=== PATIENT | female | born 1965 | race Asian ===

== ENCOUNTER 2024-12-20 08:45 | Outpatient (REF) | payer MEDICAID, SELFPAY ==
--- NOTE | ~2024-12-20 | XR_ITS ---
EXAMINATION: XR SHOULDER, LEFT CLINICAL INFORMATION: M25.519 - Pain in unspecified shoulder COMPARISON: None available. TECHNIQUE: Three views of the left shoulder. FINDINGS: The AC joint is intact. There is no degenerative change. Angle formed between the plane of glenoid and subacromial cortex is narrowed measuring 57 degrees. On humeral joint is not dislocated. Osteophyte is visible in the medial margin of the humeral head. No fracture is evident. XR/XR shoulder LT min 2V IMPRESSION: Minimal degenerative change in the left shoulder joint. Laterally downsloping acromion. Electronically signed by: Kelvin Burch MD 12/20/2024 10:48 AM EDT
== END 2024-12-20 08:46 | disposition home or self-care (01) ==
LOC: HO.HOSX 08:45
PROVIDERS: Visit Provider Physician Assistant
DX: M54.12 Radiculopathy, cervical region (principal); M75.102 Unspecified rotator cuff tear or rupture of left shoulder, not specified as traumatic; M25.512 Pain in left shoulder
CPT/HCPCS: 20610; 73030; 99202; J0665; J1100; J2003

== ENCOUNTER 2024-12-20 10:28 | Outpatient (AMB) | payer MEDICAID, SELFPAY ==
--- OUTSIDE RECORDS SUMMARY | 2024-12-19 10:00 | XMS_ITS | Encounter Summary ---
Author Organization [facility] Address [address] [place] [address] Care Team Providers Care Reverse Logistics Analyst Name Role Phone Aixa Goel GERBER Primary Care Provider [phone] Reason for Visit * Reason Comments Individual Counseling Encounter Details Date Type Department Care Team (Late st Contact Info) Description 12/19/2024 10:00 AM EDT / Visits [facility] [address] [place] [id number] Katelin Mcclain LICSW [address] [place] [address] Social History Tobacco Use Types Packs/Day Years Used Date Smoking Tobacco: Never Passive Smoke Exposure: Never Smokeless Tobacco: Never Alcohol Use Standard Drinks/Week Comments No 0 (1 standard drink = 0.6 oz pur e alcohol) Social Connections Answer Date Recorded Connectedness 0 08/13/2022 Financial Resource Strain Answer Date R ecorded Financial Resource Strain 0 2022 Stress Answer Date Recorded Stress 0 08/13/2022 Physical Activity Answer Date Recorded Physical Activity 0 10/16/2018 Food Insecurity Answer Date Recorded Food 0 08/13/2022 Transportation Needs Answer Date Record ed Transportation 0 08/13/2022 Housing Stability Answer Date Recorded Housing 0 08/13/2022 Safety and Environment Answer Date Dmitry rded Safety 0 08/13/2022 Utilities Answer Date Recorded Utilities 0 08/13/2022 Employment Answer Date Recorded Stress 0 07/04/2021 Comments No Sex and Gender Information Value Date Recorded Sex Assigned at Female 12/24/2016 12:05 PM PDT Legal Sex Female 11:45 AM PST Gender Identity Female 12/24/2016 12:05 PM PDT Sexual Orientation Straight 12/24/2016 12 :05 PM PDT Occupation Industry Job Start Date Job End Date unemployed Not on file Not on file Not on file documented as of this encounter Progress Notes * Katelin Mcclain, [facility] - 12/19/2024 10:55 AM EDT TOTAL TIME IN SESSION: 30 minutes START/ END TIME: 10:07-10:35 RISK ASSESSMENT: PERSON DENIES SI/HI OTHER PEOPLE PRESENT IN SESSION: OTHER Her son to provide Bulgarian interpretation. Assessed Needs/Goals/Objectives/Services Status Priority Assessed Needs 1: Mental Health Active 1 - High Status Target Date Goal 1.1: Improve mood and lower her sx from all of the time to 5/6 times a week mild Active 11/14/2023 Status Target Date Objective 1.1.1: Client will learn and practice skills to lower and manage her skills to lower her sx Assessed Needs 2: BH, Phys Hlth & Wellness Active 1 - High Status Target Date Goal 2.1: Continue to work with pt on managing her mood and improving her health Active 11/22/2025 Status Target Date Objective 2.1.1: Client will continue to learn and pracrice her coping skills to manageand improve her mood . Active 11/22/2025 Services Duration Amount Frequency Provider Provider Individual Therapy 30 - Mins 1x Monthly [facility] Service Plan Mental Health Improve mood and lower her sx from all of the time to 5/6 times a week mild Client will learn and practice skills to lower and manage her skills to lower her sx BH, Phys Hlth & Wellness Continue to work with pt on managing her mood and improving her health Client will continue to learn and pracrice her coping skills to manageand improve her mood . PROGRESS SINCE LAST SESSION TOWARD GOALS/OBJECTIVES: Client expressed her difficulty in managing her health issues; her suger levels go down that she feels like throwing up at times, she is always hungry and sticking to a health diet leaves her hungry all the time. She also had a observer helper shoulder pain. NEW CONCERNS TODAY: NEED TO COMPLETE COMPREHENSIVE ASSESSMENT AND IAP UPDATES Pain. MOOD: DYSPHORIC AFFECT: FULL RANGE AND CONGRUENT WITH MOOD SPEECH: WNL BEHAVIOR: COOPERATIVE EYE CONTACT: WNL THOUGHT PROCESSES: WNL ORIENTATION: WNL MEDICAL CONCERNS: NOTHING NEW COMMENT: SUBSTANCE USE: NO HX INTERVENTIONS: Allowed time for client to tell his/her story and express emotions attached to story. Utilized solution focused strategy to encouraged client to keep cooperating with her pcp to manageher medical issues. PERSON'S RESPONSE TO INTERVENTIONS: FULLY ENGAGED and COOPERATIVE Client will be seeing her orthopedic docto doctor tomorrow for her shoulder pain. PLAN FOR NEXT SESSION: Support client with managing her sx. DATE OF NEXT SESSION: 01/30 CLIENT WILL: USE SKILLS TAUGHT IN SESSION and CONSIDER HOW DISCUSSION RELATES TO HIS/HER LIFE documented in this encounter Plan of Treatment Upcoming Encounters Date Type Department Care Team (Late st Contact Info) Description 01/13/2025 9:20 AM EST Office Visit [address] [phone] Aixa Goel FNP [address] [place] [id number] 01/30/2025 10:00 AM EST BH/MH Visits [facility] [address] [place] [phone] Katelin Mcclain LICSW [address] [place] [id number] 03/28/2025 10:20 AM EST Office Visit [facility] [address] [place] [phone] Tiana Son [address] [place] [phone] documented as of this encounter Visit Diagnoses Diagnosis Depression- Primary Depressive disorder, not elsewhere classified Moderate episode of recurrent major depressive disorder documented in this encounter Additional Health Concerns Assessment Noted Time PHQ-9 Depression Total Score: 0 07/26/19 25 10:00 AM PDT A Depression follow-up plan has been documented for the patient 03/05/2023 9:52 AM PST documented as of this encounter Care Teams Reverse Logistics Analyst Relationship Specialty Start Date End Date Aixa Goel FNP [address] [place] [phone] PCP - General Internal Medicine 03/20/21 documented as of this encounter
--- NOTE | 2024-12-20 10:39 | A.OFFVIS_ITS ---
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 Patient's son reports this has been ongoing pain since the end of summer 2024. Her pain is worse when the weather is cold and with lifting her arm above head. No history of injury to shoulder. Son reports she has never been treated for her shoulders in the past. Tylenol and ibuprofen no longer provides her with relief. Expresses numbness and tingling that radiates throughout her LUE. Hx of Type 2 DM. 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 Malik is a 59-year-old right-hand dominant female who presents to the office today for evaluation of left shoulder pain. She reports that the pain has been present for the past 4-5 months. She had trauma. Pain is worse with lifting above shoulder height. She has not had any treatment to date for the shoulder. She has tried taking Tylenol and ibuprofen with no relief. Additionally, she expresses pain that runs from the neck down the entire left upper extremity accompanied by numbness and tingling. [facility] Social History (Updated 12/20/24 @ 10:51 by BLANCA Manjarrez) Alcohol intake: never Patient Tobacco Use Status: Never used Tobacco Current occupation: retired - right handed Review of Systems Const All systems reviewed & are unremarkable except as noted in HPI and below Physical Exam Vital Signs: BMI result Body Mass Index 30.1 Const General: cooperative, healthy appearing and no acute distress Resp Effort & Inspection: normal respiratory effort and able to speak in complete sentences Extrem Other: Left upper extremity 90 degrees of forward flexion and abduction. Pain with cross-body reach. Unable to attempt empty can and drop arm due to patient pain and guarding. NVI. Psych Appearance: grossly normal Mental Status: mental status grossly normal Attitude: cooperative Office Procedures AMB Joint Injection/Aspiration Joint Injection/Aspiration Primary Site: left shoulder Prep: site was prepped using aseptic technique, ethochloride spray was applied and injection warnings given Injected: 40 mg of, with 3 mL of, 1% plain lidocaine, 0.25% bupivacaine, in the subcromial space and decadron Approach Used: posterolateral Procedure: The patient tolerated the procedure well, but had some pain with the injection and there was some relief with the local anesthesia Coding - Large joint Procedure code (CPT) selection complete Assessment & Plan Assessment & Plan (1) Painful arc syndrome of left shoulder: Code(s): M75.102 - Unspecified rotator cuff tear or rupture of left shoulder, not specified as traumatic Category: Medical (2) Cervical radiculopathy: Code(s): M54.12 - Radiculopathy, cervical region Category: Medical Plan Ms. Malik is a 59-year-old right-hand dominant female who presents to the office today for evaluation of left shoulder pain. She reports that the pain has been present for the past 4-5 months. She had trauma. Pain is worse with lifting above shoulder height. She has not had any treatment to date for the shoulder. She has tried taking Tylenol and ibuprofen with no relief. Additionally, she expresses pain that runs from the neck down the entire left upper extremity accompanied by numbness and tingling. The patient was offered a cortisone injection in the left shoulder. The patient was explained the risks, benefits, and alternatives to receiving this injection. After receiving consent for the injection, the patient had the procedure done while in the office today. The patient tolerated the procedure well with no co mplications. I instructed the patient that should she have continued pain over the next 2-4 weeks she should contact the office and we will schedule an appointment for evaluation of her C-spine contributing to her symptoms. Patient understands and accepts. Follow-up will be PRN, or sooner if needed X-rays of the left shoulder which were obtained while in the office today and were reviewed by me, Lynn Putnam PA-C, revealed mild arthritic changes. Orders: Orders XR shoulder LT min 2V Today M25.519 - Pain in unspecified shoulder Coding Level of Care Code New Pt Level 3 (50697) Diagnoses Painful arc syndrome of left shoulder M75.102 Cervical radiculopathy M54.12 CPT Codes Coding - Large joint: 63949 - Large joint ([id number])
[2024-12-20 10:46] VITALS: BMI 30.1
--- OUTSIDE RECORDS SUMMARY | 2024-12-20 12:59 | XMS_ITS | Clinical Summary ---
Author Organization [facility] Address [address] [facility] [address] [place] [address] Care Team Providers Care Orthopedic Brace Maker Name Role Phone Unavailable Primary Care Provider Unavailabl e Social History Tobacco Use Types Packs/Day Years Used Date Smoking Tobacco: Never Assessed Comments Unknown Sex and Gender Information Value Date Recorded Sex Assigned at Not on file Legal Sex Female 9:21 PM EDT Gender Identity Not on file Sexual Orientation Not on file Plan of Treatment Health Maintenance Due Date Last Done Comments CT Colonography 1963 Colonoscopy 1963 Colorectal Cancer Screening 1963 Depression Screening 1963 FIT DNA/Cologuard 1963 FIT 1963 FOBT 1963 Lipid Panel 1963 SDOH Screening 1963 Sigmoidoscopy 1963 Disability Screening 1963 Alcohol/Substance Use Screening 1975 Tobacco Screening 1975 Hepatitis C Screening 1981 Hepatitis A Vaccines (1 of 2 - Risk 2-dose series) 1982 Pap Smear 01/09/1984 Cervical Cancer Screening 1993 HPV/Cotest 1993 Mammogram 2003 Hepatitis B Vaccines (1 of 3 - Risk 3-dose series) 2023 RSV Patients and Patients Aged 60 years or older (1 - Risk 60-74 years 1-dose series) 2023 Pneumococcal Vaccine: 50+ Years (3 of 3 - PCV20 or PCV21) 11/26/2023 11/25/2018, 03/23/2015 COVID-19 Vaccine ( - season) 2024 11/01/2021, 02/28/2021, 08/28/2020, Additional history exists Influenza Vaccine (#1) 2024 , 11/05/2022, 04/04/2022, Additional history exists DTaP/Tdap/Td Vaccines (2 - Td or Tdap) 03/23/2025 03/23/2015 HIV Screening Completed 05/03/2020 Zoster Vaccines Completed 10/30/2020, 05/03/2020 HIB Vaccines Aged Out No longer eligi ble based on patient's age to complete this topic HPV Vaccines Aged Out No longer eligi ble based on patient's age to complete this topic IPV Vaccines Aged Out No longer eligi ble based on patient's age to complete this topic Meningococcal B Vaccine Aged Out No l onger eligible based on patient's age to complete this topic Meningococcal Vaccine Aged Out No samaria viral eligible based on patient's age to complete this topic RSV under 20 months Aged Out No longe r eligible based on patient's age to complete this topic Rotavirus Vaccines Aged Out No longer eligible based on patient's age to complete this topic
--- OUTSIDE RECORDS SUMMARY | 2024-12-20 13:00 | XMS_ITS | Clinical Summary ---
Author Organization [facility] Address [address] [place] [address] Care Team Providers Care Professional Advisor Name Role Phone SukhwinderAixa meraz GERBER Primary Care Provider [phone] Source Comments PLEASE NOTE, if this patient is a minor, it may be UNLAWFUL to discuss sensitive information that is contained in these records (such as FAMILY PLANNING, MENTAL HEALTH or SUBSTANCE ABUSE) with the minor patient's parent or other person without the patient's specific authorization.[facility] Allergies Active Allergy Reactions Criticality Noted Date Comments Amoxicillin Rash Low 07/26/2013 Skin itching, rash on medication that resolved after stopping medication . Clotrimazole Rash,Itching Medium 05/02/2014 Doxycycline Rash 01/14/2017 Dulaglutide GI intolerance 12/04/2023 Nausea and vomiting Dust Mites Runny Nose 05/22/2015 Empagliflozin Other (See Comments) 11/20/2020 C/o: dizziness Grass Pollen Runny Nose Low 05/22/2015 Insects 05/22/2015 Cockroach. Lisinopril Rash,Cough 06/03/2018 Metformin Other (See Comments) 11/20/2020 C/o: diarrhea, nausea Sulfa (Sulfonamide Antibiotics) Rash Low 09/06/2014 Medications FREESTYLE LITE METER monitoring kit 0 018 Active miscellaneous medical supply miscIndications:U rinary incontinence, unspecified type One (1) bedside commode for urinary mixed urinary incontinence. Dx: R32 LOS: 99 1 Each 021 Active miscellaneous medical supply miscIndications:U rinary incontinence, unspecified type,Low back pain radiating to left lower extremity,Chronic pain of left knee,Primary osteoarthritis, unspecified site,Risk for falls One raised toilet seat with handles to assist with safety. Dx: R32, M54.5, M25.562, M19.91, Z91.81 LOS: 99 1 Each 021 Active ipratropium bromide (ATROVENT) 21 mcg (0.03 %) nasal spray Place 2 Sprays into the nostril(s) 2 (two) times daily Given by flat sorter processor 30 mL 1 022 Active busPIRone (BUSPAR) 15 mg tablet Take 1 Tablet by mouth 3 (three) times daily 90 Tablet 5 023 Active DULoxetine (CYMBALTA) [address] capsuleIndication s:Type 2 diabetes mellitus with hyperglycemia, without long-term current use of insulin Take 1 Capsule by mouth once daily for 90 days 90 Capsule 023 Active fluticasone (FLONASE) 50 mcg/actuation nasal sprayIndications: Nasal congestion Place 2 Sprays in both nostrils once daily for 15 days 16 g 1 023 Active OXcarbazepine (TRILEPTAL) 150 mg tablet Take 3 Tablets by mouth nightly at bedtime 270 Tablet 024 Active diclofenac sodium (VOLTAREN) 1 % gelIndications:Ch ronic foot pain, left APPLY 1 TO 2 GRAMS TOPICALLY TO THE AFFECTED AREA TWICE DAILY. NOT TO EXCEED 16 GM A DAY 100 g 2 024 Active blood-glucose meter,continuous (FREESTYLE JOSE MIGUEL 3 READER) miscIndications:T ype 2 diabetes mellitus with hyperglycemia, with long-term current use of insulin Use to test blood glucose continuously. (Freestyle Jose Miguel 3 reader) 1 Each 024 Active meclizine (ANTIVERT) 25 mg tabletIndications :Dizziness Take 1 Tablet by mouth every 8 (eight) hours as needed for dizziness 30 Tablet 1 024 Active ammonium lactate (AMLACTIN) 12 % creamIndications: Routine general medical examination at a health care facility MANUEL TO affected area as needed three times per day 140 g 5 024 Active riboflavin, vitamin B2, 400 mg tab Take 1 Tablet by mouth once daily 024 Active MISCELLANEOUS MEDICAL SUPPLY MISCIndications:M ixed stress and urge urinary incontinence Order pull up brief, used X4 per day. Size medium. Need lifetime. 120 Each Active gabapentin (NEURONTIN) 300 mg capsuleIndication s:Type 2 diabetes mellitus with diabetic polyneuropathy, with long-term current use of insulin Take 2 Capsules by mouth every evening FOR LEG OR NUMBNESS 180 Capsule 1 025 Active tacrolimus (PROTOPIC) 0.1 % ointment APPLY TO THE AFFECTED AREA 1 TO 2 TIMES DAILY NEEDED IF SKIN IS FLARED Active FEROSUL 325 mg (65 mg iron) tablet TAKE 1 TABLET BY MOUTH TWICE DAILY 180 Tablet Active insulin tape machine tailer cart,BT,G6/L2-cnt r (OMNIPOD 5 INTRO,G6/XLOHB0MO US,) crtgIndications:T ype 2 diabetes mellitus with stage 3a chronic kidney disease, with long-term current use of insulin,Type 2 diabetes mellitus with diabetic polyneuropathy, with long-term current use of insulin Inject 1 Kit into the skin once daily Use to continuously administer insulin as directed. (OmniPod 5 G6/LIBRE2 Plus intro kit) 1 Each 025 Active docusate sodium (COLACE) 100 mg capsule Take 1 Capsule by mouth 3 (three) times daily as needed for constipation 90 Capsule 2 025 Active budesonide (RHINOCORT-AQ) 32 mcg/actuation nasal spray SHAKE LIQUID AND USE 2 SPRAYS IN EACH NOSTRIL EVERY DAY 8.43 mL 3 025 Active blood-glucose sensor (FREESTYLE JOSE MIGUEL 2 PLUS SENSOR) deviIndications:T ype 2 diabetes mellitus with stage 3a chronic kidney disease, with long-term current use of insulin,Type 2 diabetes mellitus with diabetic polyneuropathy, with long-term current use of insulin Place 1 sensor to back of upper arm every 15 days. Use to monitor blood sugar continuously (Freestyle Jose Miguel 2 Plus) 2 Each 025 Active insulin lispro (HUMALOG) 100 unit/mL injectionIndicati ons:Type 2 diabetes mellitus with stage 3a chronic kidney disease, with long-term current use of insulin,Type 2 diabetes mellitus with diabetic polyneuropathy, with long-term current use of insulin Use in Omnipod insulin pump up to 90 units daily 30 mL 11 025 Active DUPIXENT PEN 300 mg/2 mL pnij INJECT 600 MG SUBCUTANEOUSLY X1 LOADING DOSE, THEN INJECT 300MG EVERY 2 WEEKS 025 Active risperiDONE (RISPERDAL) 1 mg tablet Take 1 Tablet by mouth nightly at bedtime 90 Tablet 1 025 Active insulin glargine (LANTUS SOLOSTAR U-100 INSULIN) 100 unit/mL (3 mL) penIndications:Ty pe 2 diabetes mellitus with stage 3a chronic kidney disease, with long-term current use of insulin,Type 2 diabetes mellitus with diabetic polyneuropathy, with long-term current use of insulin Inject 30 Units into the skin every morning keep on hold until pt requests, to be used if Omnipod is non-functional . 15 mL 025 Active insulin lispro 100 unit/mL injection penIndications:Ty pe 2 diabetes mellitus with stage 3a chronic kidney disease, with long-term current use of insulin,Type 2 diabetes mellitus with diabetic polyneuropathy, with long-term current use of insulin Inject 12 Units into the skin 3 (three) times daily before meals (Max 36 units/day) keep on hold until pt requests, to be used if Omnipod is non-functional . 15 mL 025 Active lidocaine (LIDODERM) 5 % patchIndications: Acute right-sided thoracic back pain Place 1 Patch onto the skin once daily (every 24 hours) Rt side skin lump pain.. 30 Patch 3 025 Active atorvastatin (LIPITOR) 20 mg tabletIndications :Type 2 diabetes mellitus with stage 3a chronic kidney disease, with long-term current use of insulin,Type 2 diabetes mellitus with diabetic polyneuropathy, with long-term current use of insulin,Hyperlipi demia LDL goal <100 Take 1 Tablet by mouth every evening For cholesterol. 90 Tablet 1 025 Active cholecalciferol (VITAMIN D-3) 50 mcg (2,000 unit) tabletIndications :Type 2 diabetes mellitus with diabetic polyneuropathy, with long-term current use of insulin Take 1 Tablet by mouth once daily. 90 Tablet 3 025 Active levothyroxine 100 mcg tabletIndications :Acquired hypothyroidism Take 1 Tablet by mouth once daily. 60 Tablet 1 025 Active olmesartan (BENICAR) 5 mg tabletIndications :Essential hypertension Take 1 Tablet by mouth every morning For blood pressure.. 90 Tablet 025 Active magnesium oxide (MAG-OX) 400 mg (241.3 mg magnesium) tablet Take 1 Tablet by mouth once daily. 90 Tablet 1 025 Active hydrocortisone 2.5 % ointmentIndicatio ns:Routine general medical examination at a health care facility Apply topically 2 (two) times daily. 28.35 g 2 025 Active pen needle, diabetic (BD ULTRA-FINE RUTH PEN NEEDLE) 32 gauge x 32 ndleIndications:T ype 2 diabetes mellitus with stage 3a chronic kidney disease, with long-term current use of insulin,Type 2 diabetes mellitus with diabetic polyneuropathy, with long-term current use of insulin USE TO INJECT INSULIN UNDER THE SKIN EVERY DAY 200 Each 025 Active alcohol swabsIndications: Type 2 diabetes mellitus with hyperglycemia, with long-term current use of insulin Use to test blood glucose up to 3 times daily.. 100 Each 025 Active blood sugar diagnostic stripsIndications :Type 2 diabetes mellitus with hyperglycemia, with long-term current use of insulin Use to test blood glucose up to 3 times daily (Freestyle Precision Marcos). 100 Each 025 Active lancets (FREESTYLE LANCETS) 28 gaugeIndications: Type 2 diabetes mellitus with hyperglycemia, with long-term current use of insulin Use to test blood glucose up to 3 times daily (Freestyle Lancets). 100 Each 025 Active MYRBETRIQ 50 mg [id number]:H TN (hypertension), benign,Mixed stress and urge urinary incontinence TAKE 1 TABLET BY MOUTH DAILY 90 Tablet 025 Active traMADoL (ULTRAM) 50 mg tabletIndications :Migraine with aura and without status migrainosus, not intractable Take 1 Tablet by mouth 2 (two) times daily as needed for pain. Max Daily Amount: 100 mg 30 Tablet 1 025 Active loperamide 2 mg tabletIndications :Diarrhea, unspecified type Take 1 Tablet by mouth every 8 (eight) hours as needed for diarrhea. 20 Tablet 1 025 Active triamcinolone (KENALOG) 0.1 % pasteIndications: Routine general medical examination at a health care facility Place in mouth 2 (two) times daily. 5 g 5 025 Active SUMAtriptan succinate (IMITREX) 100 mg tabletIndications :Chronic migraine without aura with status migrainosus, not intractable Take 1 Tablet by mouth once daily NEEDED FOR HEADACHES. IF NOT BETTER IN 2 HOURS THEN YOU MAY 1 MORE TABLETS! MAX 2 TABLETS PER DAY!!. 20 Tablet 1 025 Active omeprazole (PRILOSEC) [address] capsuleIndication s:Routine general medical examination at a health care facility Take 1 Capsule by mouth every morning before breakfast. 90 Capsule 1 025 Active montelukast (SINGULAIR) 10 mg tabletIndications :Routine general medical examination at a health care facility TAKE 1 TABLET BY MOUTH EVERY NIGHT AT BEDTIME. 90 Tablet 1 025 Active ketotifen (ZADITOR) 0.025 % (0.035 %) ophthalmic solutionIndicatio ns:Routine general medical examination at a health care facility INSTILL 1 DROP IN BOTH EYES TWICE DAILY. 10 mL 2 025 Active hydrocortisone valerate (WEST-ROSALINA) 0.2 % ointmentIndicatio ns:Routine general medical examination at a health care facility Apply topically 2 (two) times daily as needed for rash APPLY TOPICALLY TO FACE TWICE DAILY NEEDED To legs and arms. 15 g 3 025 Active acetaminophen (TYLENOL) 500 mg tabletIndications :Chronic migraine without aura with status migrainosus, not intractable Take 2 Tablets by mouth every 6 (six) hours as needed for pain. 60 Tablet 2 025 Active benzonatate (TESSALON) 200 mg capsule TAKE 1 CAPSULE BY MOUTH THREE TIMES DAILY FOR 5 DAYS FOR COUGH 025 Active dapagliflozin propanediol (FARXIGA) 10 mg tabIndications:Ty pe 2 diabetes mellitus with stage 3a chronic kidney disease, with long-term current use of insulin Take 1 Tablet by mouth every morning For diabetes. 30 Tablet 5 025 Active insulin pump cart,auto,BT,G6/L (OMNIPOD 5, G6/JOSE MIGUEL 2 PLUS,) crtgIndications:T ype 2 diabetes mellitus with stage 3a chronic kidney disease, with long-term current use of insulin,Type 2 diabetes mellitus with diabetic polyneuropathy, with long-term current use of insulin Inject 1 Kit into the skin every other day Use to continuously administer insulin as directed. Change Pods Every 2 days increased frequency (OmniPod 5 G6/LIBRE2 Plus Pods). 15 Each 11 025 Active cetirizine (ZYRTEC) 10 mg tabletIndications :Type 2 diabetes mellitus with hyperglycemia, with long-term current use of insulin TAKE 1 TABLET BY MOUTH DAILY NEEDED FOR ALLERGIES 90 Tablet 1 025 Active diphenhydrAMINE (BENADRYL) 50 mg capsule TAKE ONE CAPSULE BY MOUTH EVERY NIGHT AT BEDTIME NEEDED FOR ITCHING. 90 Capsule 025 Active diphenhydrAMINE (BENADRYL) 50 mg capsule TAKE ONE CAPSULE BY MOUTH EVERY NIGHT AT BEDTIME NEEDED FOR ITCHING OR ALLERGIES 90 Capsule 025 2024 Discontinued cetirizine (ZYRTEC) 10 mg tabletIndications :Type 2 diabetes mellitus with hyperglycemia, with long-term current use of insulin Take 1 Tablet by mouth once daily as needed for allergies. 90 Tablet 1 025 2024 Discontinued Active Problems Patient Care Coordination No te Formatting of this note migh t be different from the original. 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 DM dx: ~2013 per patient reports Glucometer: Omnipod 5 w/ Freestyle Jose Miguel 2 Plus Current Diabetes RX: Use in Omnipod insulin pump up to 90 units daily Dapagliflozin 10 mg daily every morning (CKD) Insulin doses previously use before Omnipod (to use if Omnipod not functional) Lantus Solostar - inject 30 units every morning Insulin lispro - inject 12 units before daily before lunch and dinner (max 36 units/day) KAMI-I/ARB: Olmesartan 5 mg daily every morning Statin: Atorvastatin 20 mg daily every evening Pneumococcal vaccine: PCV13 (11/25/18) PPSV23 (03/23/15) Diabetes foot exam: Completed [facility] appt around November 2023, no notes on file, will call to obtain. 03/05/23 per Normal pedal pulses, no trophic changes or ulcerative lesions, normal sensory exam, and normal monofilament exam, follow-up December 09, 2023 Diabetes retinal exam: 05/16/24 at [facility] Acute allergic conjunctivitis OU - using ketotifen, sampled Pataday No active diabetic retinopathy Epiretinal membrane OD - residual ERM s/p vitrectomy with ILM peel 08/19/[address] Reeves OD - camay/may not be a candidate for repeat membrane peel - pt declines to pursue at this time. Strabismic amblyopia OS - no specific intervention is recommended. Nuclear sclerosis OS - defer cataract surgery OS due to longstanding childhood amblyopia - the patients ocular condition is potentially progressive Cortical age-related cataract OS - see above Pseudophakia OD - well positioned Patient completed right eye cataract surgery early August 2023. 05/15/23 at [facility] No active diabetic retinopathy. Epiretinal membrane OU. OCT macula today confirms clinical diagnosis . Posterior subcapsular polar age-related cataract OS. Cataract refer to surgeon... 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 DM dx: ~2013 per patient reports Glucometer: Omnipod 5 w/ Freestyle Jose Miguel 2 Plus Current Diabetes RX: Use in Omnipod insulin pump up to 90 units daily Dapagliflozin 10 mg daily every morning (CKD) Insulin doses previously use before Omnipod (to use if Omnipod not functional) Lantus Solostar - inject 30 units every morning Insulin lispro - inject 12 units before daily before lunch and dinner (max 36 units/day) KAMI-I/ARB: Olmesartan 5 mg daily every morning Statin: Atorvastatin 20 mg daily every evening Pneumococcal vaccine: PCV13 (11/25/18) PPSV23 (03/23/15) Diabetes foot exam: Completed [facility] appt around November 2023, no notes on file, will call to obtain. 03/05/23 per Normal pedal pulses, no trophic changes or ulcerative lesions, normal sensory exam, and normal monofilament exam, follow-up December 09, 2023 Diabetes retinal exam: 05/16/24 at [facility] Acute allergic conjunctivitis OU - using ketotifen, sampled Pataday No active diabetic retinopathy Epiretinal membrane OD - residual ERM s/p vitrectomy with ILM peel 08/19/[address] Reeves OD - camay/may not be a candidate for repeat membrane peel - pt declines to pursue at this time. Strabismic amblyopia OS - no specific intervention is recommended. Nuclear sclerosis OS - defer cataract surgery OS due to longstanding childhood amblyopia - the patients ocular condition is potentially progressive Cortical age-related cataract OS - see above Pseudophakia OD - well positioned Patient completed right eye cataract surgery early August 2023. 05/15/23 at [facility] No active diabetic retinopathy. Epiretinal membrane OU. OCT macula today confirms clinical diagnosis . Posterior subcapsular polar age-related cataract OS. Cataract refer to surgeon... recommend referral to surgeon for cataract evaluation Essential hypertension 07/13/2023 Fibroid, uterine 12/02/2021 Overview (09/04/2023): Images from the original note were not included. -09/2022: per Dr Bailon: MD Aixa Mathis, CONTROL PANEL ASSEMBLER Thank you Aixa A fibroid of this sort is innocent and may be ignored. If it looked like a sarcoma, the radiologist would have said so and biopsy would be excisional, at hysterectomy. There's about [phone] women with benign fibroids for every woman with a sarcoma, so I would not advise any follow-up at all. Thank you for a penetrating question! RH ----- ------- 09/15/2022: CT of abd/pelvis at [facility]: IMPRESSION: 1. No urinary mass, calculus or obstruction is seen. 2. A benign, stable 1.2 cm benign, fat-containing right adrenal adenoma is seen, for which no imaging follow-up is recommended. 3. No acute or aggressive osseous finding is noted. 04/23/2022: [facility]: US of uterus: FINDINGS: Uterus: The uterus is mildly enlarged and globular in appearance measuring 5.9 x 2.2 x 5.5 cm in maximal dimensions. There is a right anterior uterine fibroid measuring 2.6 x 1.8 x 2 cm. Endometrium is normal in appearance with a thickness of 4 mm. Right ovary: The right ovary is of normal size and contour measuring 1.8 x 1.2 x 2 cm in axial dimensions. There is no ovarian mass. There is normal blood flow. Left ovary: The left ovary is of normal size and contour measuring 2.9 x 1.5 x 1.5 cm. There is no ovarian mass. There is normal blood flow. There is no free fluid. IMPRESSION: 1. Enlarged fibroid uterus as detailed above. 11/26/2021: [facility]: CT of abd:/pelvis: FINDINGS: LUNG BASES: The visualized lung bases are unremarkable. LIVER, GALLBLADDER, AND BILIARY TREE: The liver is normal in size, shape, and mildly diminished in attenuation. No focal hepatic lesion or biliary ductal dilatation is present. The gallbladder is unremarkable with no evidence of radiopaque gallstones, gallbladder wall thickening, or obvious pericholecystic inflammatory changes. PANCREAS: Unremarkable SPLEEN: Unremarkable ADRENAL GLANDS: Within the right adrenal gland, a 1.3 x 1.1 cm homogeneous nodule is seen, with postcontrast Hounsfield value of 110.0 units. The left adrenal gland is unremarkable. KIDNEYS AND URETERS: The kidneys are normal in size, shape, and attenuation. No hydronephrosis, hydroureter, or calculi seen. No perinephric stranding. BLADDER: Unremarkable GASTROINTESTINAL TRACT: There is a mild to moderate stool burden. No bowel obstruction, free intraperitoneal air or abscess is seen. There is no focal bowel wall thickening. The vermiform appendix appears diminutive and unremarkable. ABDOMINAL WALL: There is a tiny fat-containing umbilical hernia. LYMPH NODES: Normal VASCULAR: Unremarkable PELVIC VISCERA: There is the appearance of uterine fibroids. The ovaries are unremarkable. No adnexal mass is seen. OSSEOUS STRUCTURES: There is a moderately large chronic, healed fracture defect and/or anterior spondylosis of the L4 upper endplate. No acute or aggressive osseous abnormality is seen. IMPRESSION: 1. There is a mild to moderate stool burden. No bowel obstruction, free intraperitoneal air or abscess is seen. There is no appendicitis or diverticulitis. 2. No urinary calculus or obstructive uropathy is seen. 3. An indeterminate 1.3 cm right adrenal nodule is seen. There is a probable adenoma. Recommend one year follow-up adrenal washout CT. If stable for a period of greater than or equal to 1 year, no further imaging is recommended. 4. There is mild hepatic steatosis. 5. There is uterine fibroid disease, which can be more fully evaluated with dedicated pelvic ultrasound, if clinically indicated. 6. No acute or aggressive osseous abnormality is seen. Fleischner guidelines were followed. Hepatic steatosis 12/02/2021 DDD (degenerative disc disease), lumbar 11/12/19 22 Overview (11/11/2021): 07/15/2021: [facility]: MRI of lumbar: FINDINGS: Lumbar vertebral body height and alignment are maintained. Mild multilevel degenerative endplate ridging was pronounced at the L3-4 level. There is no evidence of focal lumbar vertebral marrow signal abnormality. The visualized distal spinal cord is within normal limits in signal and morphology. The conus medullaris is visualized at the L1 level. Specific findings are identified the following levels: T12-L1: No evidence for disc herniation, central stenosis or neural foraminal narrowing L1-L2: No evidence for disc herniation, central stenosis or neural foraminal narrowing L2-L3: No evidence for disc herniation or central stenosis. Minimal neuroforaminal narrowing on the left due to endplate ridging L3-L4: Mild diffuse disc bulge and endplate ridging results in partial effacement of the ventral thecal sac without central stenosis and mild neuroforaminal narrowing bilaterally similar to the prior exam L4-L5: Diffuse disc bulge is superimposed shallow central disc protrusion results in accompanying facet arthrosis change results in mild central stenosis. Mild neuroforaminal narrowing bilaterally (greater on the left than the right) in conjunction with endplate ridging L5-S1: Shallow posterior disc bulge asymmetric to left resulting in partial effacement of the ventral epidural fat without central stenosis. Mild neuroforaminal narrowing on the left in conjunction with endplate ridging The visualized portion of the retroperitoneum is grossly unremarkable, although technique was not optimized for it's assessment. 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 F/U 3 months 08/06/23 - [facility] CKD stage III likely secondary to diabetes and possibly NSAID/analgesic nephropathy Hypertension Diabetes Renal function stable, continue Farxiga Weight loss recommended along with OBGYN f/u for recurrent adenexal Mass Lumbar radiculopathy, chronic 07/05/2021 Exotropia of left eye 07/05/2021 Dysarthria 04/07/2021 Other symptoms and signs inv olving cognitive functions and awareness: sees Neuro 04/07/2021 Requires daily assistance fo r activities of daily living (ADL) and comfort needs 04/07/2021 Chronic left shoulder pain 04/07/2021 Dizziness 04/07/2021 History of 2019 novel coronavirus disease (COVID -19) 03/05/2020 Overview (03/14/2020): COVID-19 Tracking [reviewed or updated 03/14/2020] Exposure to confirmed case or travel risk - Yes, Dateunknown (son) Date that symptoms began - 03/06/20 Patient risk factors for severe COVID-19: Diabetes Healthcare worker or first aid trainer? No COVID-19 Tested? - Yes - Date Tested 03/05/20 Testing Location - Other [facility] testing site - Testing Results - Positive Is patient ? No Moderate episode of recurrent major depressive d isorder 09/22/2019 Mixed stress and urge urinary incontinence 11/25 Vaginal atrophy 09/09/2018 History of shingles 01/09/2017 Constipation 09/17/2015 Overview (10/30/2015): colonoscopy at [facility] on 10/01/15: Int and Ext Hemorrhoids. Otherwise normal. F/u in 10 yrs Intrinsic atopic dermatitis 05/22/2015 Overview (05/22/2015): Seen at allergy clinic. Neuropathy 12/20/2014 Overview (11/05/2016): Both leg pain ? Diabetic neuropathy - on neurontin Seen at [facility] 07/02/16- Pt features of left LE neurpathic pain with pain in the left lateral foot. Has recently started Amitriptyline. Review in 2 months. [facility] 09/10/2016- Increased Amitriptyline to 25mg bid. cont depakote for migraine. F/u in 2-3 mo. Multiple allergies 09/20/2014 Overview (01/24/2020): Following [facility] Specialist, Dr. Britton - allergy to hot- relieved with hydroxyzine. - 12% ammonium lactate . ?allergy to okra,eggplant. Allergy to pollen, tree grass, dust mite as well as cockroach Vitamin D deficiency 01/05/2014 Chronic left-sided low back pain with left-sided sciatica 10/18/2013 Overview (02/24/2018): Vertebral endplate degerative changes,large spur of L4. Seen by [facility] pain [facility]-received pain injection 01/18/18-f/u in 8 weeks Knee pain, left 10/18/2013 Overview (11/19/2013): 11/14/13- minimal degerative changes are noted. GERD (gastroesophageal reflux disease) 4 Overview (10/30/2015): egd- 07/19/13- [facility] wagoner [facility]. EGD at [facility] on 10/01/15: Normal stomach, duodenum. Hiatal hernia in GE Jn. GI rec cont Omeprazole for symptom control Hypothyroidism 05/17/2013 Hearing loss, bilateral 05/17/2013 Overview (09/17/2015): Has hearing aid on Rt, No hearing on Lt Seen by ent, [facility] left tympanic membrane perforation - left fungal otitis externa treated, - hearing loss - moderately severe sensorineural hearing loss on right side, Closure of left perforation is unlikely beneficial. . Osteoarthritis 05/17/2013 Memory problem 05/17/2013 Overview (12/08/2013): Seen by [facility], - On 09/14/13. Depressed, developmentally delayed, irritable Memory problem may be related to depression . Migraine with aura and witho ut status migrainosus, not intractable 05/17/2013 Overview (03/04/2024): Saw neurologist on 11/05/23: per note: Assessment/Plan 58-year-old female past medical history of hypertension, type 2 diabetes mellitus, mixed incontinence and suspected dementia. Patient last seen in August for chronic mixed headache syndrome with migrainous features, myofascial pain, cervicogenic and neuralgic features. Used to have headaches 2-3 times per week and in the next sentence reports she has them 1-2 times per day. Patient reports she continues taking sumatriptan 3-4 times per week for headache treatment. Patient advised sumatriptan last visit given this is likely contributing to medication overuse headache she did decrease sumatriptan dose and takes it 3-4 times per week. Patient advised to take abortive therapy no more than 2-3 doses in a week to prevent constant rebound headache. Has not had MRI of the brain without contrast completed. And she did not proceed with recommendations for physical therapy her niece that accompanies her to this appointment and aids in interpretation states that it is difficult for her son to get her to appointments as he works. Patient and niece requesting to trial magnesium 400 mg daily and riboflavin 400 mg daily for preventative therapy. I have sent prescriptions to patient's pharmacy. -Follow up on MRI Brain -Magnesium 400 mg daily Riboflavin 400 mg daily -Limit sumatriptan to no more than 2-3 doses per week -Follow up in 3-4 months. Following Neuro at [facility] Mri of brain- non specific changes partially empty sella morphology. -10/05/13. 05/22/15- on baclofen and topamax is increased to 75 mg at bedtime, baclofen 5 mg po tid. 07/26/15- topamax is stopped, depakote is started. - avoid opiates as well as barbiturates. >> Had Neurology f/u on 12/17/15, suggest Limited baclofen 5mg TID, Pain center follow up for further TPI if needed and Increased gabapentin to 400mg TID. 4 mo follow up. >> Neuro f/u 09/10/16, Increased Amitriptyline to 25mg bid. cont depakote 500mg hs. 01/20/17- Seen by Neurology- Continue Depakote 500 mgs at bedtime and Amitrptyline 60 mgs at bedtime, multifactorial approach. Avoid Opiates and barbituates due to risk of rebound headaches, Limit OTC medications for headaches to four times a week. Promote sleep, hydration, proper eating, decreasing caffeine. Work on depression. Return in 6 months. 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 - Posterior Subcapsular Polar Age-related Cataract OS - recommended referral to surgeon for cataract evaluation -Nuclear sclerosis OS - Pseudophakia OD - Strabismic Amblyopia OS Med: Ketotifen Ophthalmic 0.025% 1 gtt bid OU Chronic RLQ pain 11/11/2021 09/04/2023 Overview (12/02/2021): 11/26/2021: Rayus: CT of abd:/pelvis: FINDINGS: LUNG BASES: The visualized lung bases are unremarkable. LIVER, GALLBLADDER, AND BILIARY TREE: The liver is normal in size, shape, and mildly diminished in attenuation. No focal hepatic lesion or biliary ductal dilatation is present. The gallbladder is unremarkable with no evidence of radiopaque gallstones, gallbladder wall thickening, or obvious pericholecystic inflammatory changes. PANCREAS: Unremarkable SPLEEN: Unremarkable ADRENAL GLANDS: Within the right adrenal gland, a 1.3 x 1.1 cm homogeneous nodule is seen, with postcontrast Hounsfield value of 110.0 units. The left adrenal gland is unremarkable. KIDNEYS AND URETERS: The kidneys are normal in size, shape, and attenuation. No hydronephrosis, hydroureter, or calculi seen. No perinephric stranding. BLADDER: Unremarkable GASTROINTESTINAL TRACT: There is a mild to moderate stool burden. No bowel obstruction, free intraperitoneal air or abscess is seen. There is no focal bowel wall thickening. The vermiform appendix appears diminutive and unremarkable. ABDOMINAL WALL: There is a tiny fat-containing umbilical hernia. LYMPH NODES: Normal VASCULAR: Unremarkable PELVIC VISCERA: There is the appearance of uterine fibroids. The ovaries are unremarkable. No adnexal mass is seen. OSSEOUS STRUCTURES: There is a moderately large chronic, healed fracture defect and/or anterior spondylosis of the L4 upper endplate. No acute or aggressive osseous abnormality is seen. IMPRESSION: 1. There is a mild to moderate stool burden. No bowel obstruction, free intraperitoneal air or abscess is seen. There is no appendicitis or diverticulitis. 2. No urinary calculus or obstructive uropathy is seen. 3. An indeterminate 1.3 cm right adrenal nodule is seen. There is a probable adenoma. Recommend one year follow-up adrenal washout CT. If stable for a period of greater than or equal to 1 year, no further imaging is recommended. 4. There is mild hepatic steatosis. 5. There is uterine fibroid disease, which can be more fully evaluated with dedicated pelvic ultrasound, if clinically indicated. 6. No acute or aggressive osseous abnormality is seen. Fleischner guidelines were followed. 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 pt was started on trileptal. Abdominal pain 08/20/2018 09/04/2023 Overview (01/24/2020): abdominal CT done 08/12/2018-no evidence of urinary tract calculus or obstruction. No acute abdominal process identified [facility] 03/05/16- Colonic diverticulosis with acute diverticulitis by CT analysis when compared 10/14/2015 >> She went to [facility] ER on 06/11/16 with 3 days of severe but poorly characterized abdominal pain across the lower abdomen. She also reports tactile fevers and decreased by mouth intake. Pain is described as aching and waxing and waning but now persistent and severe times several hours. Labs unremarkable. CT abd/pelvis show No obstruction, free air or free fluid. No evidence of appendicitis or diverticulitis. Possible mild rectosigmoid wall thickening may represent colitis versus underdistention. She was discharged with PO Levaquin, Flagyl to f/u as outpt. USG abd at [facility] on 04/24/16- No finding to suggest a hernia or other abnormality to explain the patient's right lower quadrant pain and reporting lump Stage 2 chronic kidney disease 04/29/2018 02/23/2020 Diabetic eye exam ([facility]) 05/20/2017 01/24/2020 Overview (05/20/2017): [facility] 05/12/2017 Bilateral: Headache Possibly refractive as pt. Has no current near RX Bilateral: Dry eye syndrome Left Eye: Nuclear sclerotic cataract Right Eye: PC intraocular lens Posterior capsule has a partial or irregular opening not obscuring vision Bilateral: NL Retinal exam Bilateral: Type ll diabetes No macular edema CLXT approx 35-40 degrees, D and N Left Eye: Strabismus, exotropia. Monocular exotropia Abdominal wall lump 03/17/2016 01/24/20 20 Overview (05/06/2016): USG abd at [facility] on 04/24/16- No finding to suggest a hernia or other abnormality to explain the patient's right lower quadrant pain and reporting lump Adrenal nodule 11/09/2015 03/04/2024 Overview (03/04/2024): Stable. 09/15/2022: CT of abdomen; rayus: FINDINGS: LUNG BASES: There is bibasilar dependent hypoaeration. LIVER, GALLBLADDER, AND BILIARY TREE: The liver is normal in size, shape, and attenuation. No focal hepatic lesion or biliary ductal dilatation is present. The gallbladder is unremarkable with no evidence of radiopaque gallstones, gallbladder wall thickening, or obvious pericholecystic inflammatory changes. PANCREAS: Unremarkable. SPLEEN: Unremarkable. ADRENAL GLANDS: The right adrenal gland contains a stable 1.2 cm nodule with precontrast Hounsfield value of 4.3 units (6:21). This requires no further imaging follow-up. The left adrenal gland is unremarkable. KIDNEYS AND URETERS: The kidneys are normal in size, shape, and attenuation. No hydronephrosis, hydroureter, or calculi seen. No perinephric stranding. BLADDER: Unremarkable. GASTROINTESTINAL TRACT: The small and large bowel are unremarkable. The appendix is demonstrated and unremarkable, without finding to suggest appendicitis. ABDOMINAL WALL: There is a tiny fat-containing umbilical hernia. LYMPH NODES: Normal. VASCULAR: Unremarkable. PELVIC VISCERA: The uterus and adnexa are unremarkable. OSSEOUS STRUCTURES: There is anterior spondylosis of the L4 and L5 upper endplates. There is a stable healed avulsed osteophyte or teardrop fracture fragment at the anterior margin of the L4 upper endplate. IMPRESSION: 1. No urinary mass, calculus or obstruction is seen. 2. A benign, stable 1.2 cm benign, fat-containing right adrenal adenoma is seen, for which no imaging follow-up is recommended. 3. No acute or aggressive osseous finding is noted. Appears stable. CT of abd pelvis at [facility] on 11/26/2021: An indeterminate 1.3 cm right adrenal nodule is seen. There is a probable adenoma. Recommend one year follow-up adrenal washout CT. If stable for a period of greater than or equal to 1 year, no further imaging is recommended. CT abd/pelvis( 10/14/15, [facility]): CONCLUSION: Mild left-sided urothelial thickening and perinephric inflammatory changes most consistent with pyelonephritis. Recommend correlation with urinalysis and urine culture. 1.2 cm nonspecific right adrenal nodule. Recommend MRI utilizing adrenal mass protocol for further evaluation. MRI Abd/pel(11/21/15, [facility]): IMPRESSION: Limited exam secondary to respiratory motion artifact. Right adrenal nodule measuring 0.8 x 1.2 cm in size cannot be fully characterized on the basis of this exam given small size and technical limitations. Probable signal dropout on in and out of phase imaging suggests a benign adenoma. However correlation with prior imaging if available or followup adrenal protocol CT within 3-6 months is advised. >> She went to [facility] ER on 03/05/16 with left abd pain. Had CT abd Which showed Essentially stable indeterminate 1 cm right adrenal nodule. ( corrected size on addendum, also I discussed with radiology myself on 03/17/16 who suggested no further f/u needed for the nodule if asymptomatic) -Will not f/u if pt remains asymptomatic Depression with anxiety 09/17/2015 12/0 02/2019 Overview (09/17/2015): Following at [facility]. Yet to see psychiatry Dyslipidemia 09/17/2015 01/14/2024 Leukocytosis 05/23/2015 09/04/2023 Abdominal cramps,left lower quadrant. 05/23/2015 01/24/2020 Overview (06/24/2016): [facility] 03/05/16- Colonic diverticulosis with acute diverticulitis by CT analysis when compared 10/14/2015 >> She went to [facility] ER on 06/11/16 with 3 days of severe but poorly characterized abdominal pain across the lower abdomen. She also reports tactile fevers and decreased by mouth intake. Pain is described as aching and waxing and waning but now persistent and severe times several hours. Labs unremarkable. CT abd/pelvis show No obstruction, free air or free fluid. No evidence of appendicitis or diverticulitis. Possible mild rectosigmoid wall thickening may represent colitis versus underdistention. She was discharged with PO Levaquin, Flagyl to f/u as outpt. Left lower quadrant pain 03/23/2015 Pain in both feet 12/20/2014 05/25/2015 Dysuria 09/20/2014 09/17/2015 Rash due to allergy 09/05/2014 05/22/19 16 Acute cystitis without hematuria 08/30/2014 09/17/2015 Overview (10/22/2014): 09/08/14- uti At [facility] , on nitrofurantoin. Bilateral plantar fasciitis 08/04/2014 01/24/2020 Overview (04/20/2017): [facility] 03/31/2017 Painful onychomycosis by clinical appearance toes 1 through 5. Pain in left limb. Pain in right limb. Diabetes Mellitus Type ll with circulatory Compliction. Following Podiatry 08/10/14 moderate plantar heel spur on right side . Large plantar heel spur On left side. Diabetes mellitus 03/25/2014 07/13/2023 Otitis externa, left 03/24/2014 016 Left foot pain 03/24/2014 09/17/2015 Overview (08/24/2014): 08/10/14- moderate plantar heel spur on right side . Large plantar heel spur On left side. Pruritus 03/24/2014 12/04/2014 Pap smear for cervical cancer screening 07/26/2013 01/24/2020 Overview (12/04/2014): Pap-normal Gc,chlamydia- neg [facility]- [facility],11/30[facility]- normal. Irregular periods ? permenopausal 07/26/2013 04/29/2020 Overview (05/01/2015): 05/06/14- u/s- anterior fundal fibroid is noted. Rpt u/s on 04/11/15 - subserous uterine fibroid measuring 2.9 x 2.5x2.1 cm. - no acute findings. Normal colonoscopy 07/24/2013 1 H. pylori infection 05/24/2013 09/17/19 16 Seasonal allergies 05/17/2013 0 Overview (09/28/2015): Following Desktop Specialist, Dr. Britton - allergy to hot- relieved with hydroxyzine. - 12% ammonium lactate . ?allergy to okra,eggplant. Allergy to pollen, tree grass, dust mite as well as cockroach. Encounters Date Type Department Care Team Description 12/19/2024 10:00 AM EDT BH/MH Visits [facility] [address] [place] [phone] Katelin Mcclain LICSW 12/06/2024 11:00 AM EDT BH/MH Visits [facility] [address] [place] [phone] Katelin Mcclain LICSW 11/25/2024 9:00 AM EDT Office Visit [facility] [address] [place] [phone] Rebeca Stanley, DDS 11/21/2024 10:00 AM EDT BH/MH Visits [facility] [address] [place] [phone] Katelin Mcclain, PHP MYSQL DEVELOPER 11/10/2024 9:00 AM EDT Office Visit [facility] [address] [place] [phone] Rebeca Stanley, DDS 11/08/2024 Interim Notes [facility] [address] [place] [phone] Saran Fuentes, PHILLY 11/07/2024 9:40 AM EDT Office Visit [facility] [address] [place] [phone] Rebeca Stanley, DDS 11/01/2024 Erroneous Telephone Encounter [facility] [address] [place] [phone] Rocio Acosta, Medical Records 10/25/2024 11:00 AM EDT BH/MH Visits [facility] [address] [place] [phone] Katelin Mcclain, PHP MYSQL DEVELOPER 10/20/2024 9:00 AM EDT Office Visit [facility] [address] [place] [phone] Rebeca Stanley, DDS 10/07/2024 9:00 AM EDT Office Visit [facility] [address] [place] [phone] Rebeca Stanley, DDS 10/07/2024 Interim Notes [address] [phone] Saran Fuentes, [place] 10/05/2024 10:20 AM EDT Office Visit [address] [phone] Chavez Campbell, Michelle 10/05/2024 Results Follow-Up [facility] [address] [place] [phone] Aixa Goel, CONTROL PANEL ASSEMBLER 09/28/2024 10:20 AM EDT Office Visit [facility] [address] [place] [phone] Aixa Goel, CONTROL PANEL ASSEMBLER 09/27/2024 10:20 AM EDT Office Visit [facility] [address] [place] [phone] Tiana Son from Last 3 Months Immunizations Immunization Administration Dates Next Due Flu, Preservative Free 11/05/2022,2022,05/03/2020,11/25,12/03/2017,11/05/2016 INFLUENZA, SEASONAL, INJECTABLE 12/20/2015,12/21 Influenza (FLUBLOK),recombinant,injectable,prese rvative Free 11/02/2023 PFIZER COVID VACCINE, PURPLE CAP, 12+ 02/28/2021 ,08/28/2020,08/06/2020 PNEUMOCOCCAL CONJUGATE PCV 13 11/25/2018 PNEUMOCOCCAL POLYSACCHARIDE PPV23 (Pneumovax 23) 03/23/2015 PPD 12/20/2014 Pfizer-BioNTech COVID-19 Vac cine Bivalent, (GARCIA PFIZER-BIONTECH COVID-19 VACCINE BIVALENT, (GARCIA CAP 11/01/2021 TDAP 03/23/2015 ZOSTER VACCINE, RECOMBINANT (SHINGRIX) ,05/03/2020 Family History Medical History Relation Name Comments Diabetes Brother Diabetes Mother Relation Name Status Comments Brother Mother Social History Tobacco Use Types Packs/Day Years Used Date Smoking Tobacco: Never Passive Smoke Exposure: Never Smokeless Tobacco: Never Tobacco Cessation:Counseling Given: Not Answered Alcohol Use Standard Drinks/Week Comments No 0 [...] file Not on file Not on file Last Filed Vital Signs Vital Sign Reading Time Taken Comments Blood Pressure 142/85 11/25/2024 9:07 AM EDT Pulse 78 11/25/2024 9:07 AM EDT Temperature 36.7 C (98.1 F) 09/28/2024 10:22 AM EDT Respiratory Rate 16 10/05/2024 10:32 AM EDT Oxygen Saturation 95% 10/05/2024 10:32 AM EDT Inhaled Oxygen Concentration - - Weight 78 kg (172 lb) 10/05/2024 10:32 AM EDT Height 162.6 cm (5' 4 ) 10/05/2024 10:32 AM EDT Body Mass Index 29.52 10/05/2024 10:32 AM EDT Plan of Treatment Upcoming Encounters Date Type Department Care Team (Late st Contact Info) Description 01/13/2025 9:20 AM EST Office Visit [facility] [address] [place] [phone] Aixa Goel, CONTROL PANEL ASSEMBLER [address] [place] [address] 01/30/2025 10:00 AM EST /MH Visits [facility] [address] [place] [phone] Katelin Mcclain, PHP MYSQL DEVELOPER [address] [place] [address] 03/28/2025 10:20 AM EST Office Visit [facility] [address] [place] [phone] Tiana Son Y [address] [place] [address] Health Maintenance Due Date Last Done Comments HPV Screening (self-collect) [address] Colonography 01/09/2008 Fecal DNA 01/09/2008 Flexible Sigmoidoscopy 01/09/2008 FIT/gFOBT 07/19/2014 07/19/2013 Imm-Pneumococcal 50+ (3 of 3 - PCV20 or PCV21) 11/26/2023 11/25/2018, 03/23/2015 [id number] ( - season) 2024 11/01/2021, 02/28/2021, 08/28/2020, Additional history exists Imm-Influenza (#1) 2024 11/02/2023, 0 11/05/2022, 04/04/2022, Additional history exists Depression Monitoring 10/25/2024 07/25/2024 , 03/04/2024, 11/02/2023, Additional history exists Hemoglobin A1c 12/29/2024 09/28/2024, 03/0 08/2024, 04/29/2024, Additional history exists Imm-DTaP/Tdap/Td (2 - Td or Tdap) 03/23/2025 016 Dental Prophy 04/01/2025 09/27/2024 Pap Smear 05/02/2025 05/02/2022, 03/27, 07/27/2013 Retinopathy Screening 05/16/2025 05/16/2024 , 06/11/2023, 05/15/2023, Additional history exists Breast Cancer Screening (Mammogram) 08/27/2025 08/28/2023, 05/22/2022, 01/10/2021, Additional history exists Dental BW 09/16/2025 09/14/2024 Dental Examination 09/16/2025 09/14/2024 Diabetes Foot Exam 09/19/2025 09/19/2024 (M anaged by Outside Provider), 03/05/2023, 04/25/2020, Additional history exists Annual Wellness (Adult): Indicated (All Coverage) 09/28/2025 09/28/2024, 09/04/2023, 08/13/2022, Additional history exists Anxiety Screening 09/28/2025 09/28/2024 Lipid Screening 09/28/2025 09/28/2024, 03/0 08/2024, 06/03/2023, Additional history exists TSH Monitoring 09/28/2025 09/28/2024, 04/1 , 08/13/2022, Additional history exists Dental Perio Charting 09/29/2025 09/27/2024 Colonoscopy 09/30/2025 10/01/2015 Colorectal Cancer Screening 09/30/2025 Serum Creatinine 11/07/2025 11/07/2024, 07/2024, 04/29/2024, Additional history exists Urine Albumin Creatinine Rat io Screening 11/07/2025 11/07/2024, 09/28/2024, 04/29/2024, Additional history exists Tobacco Screening 11/25/2025 11/25/2024, 06/22/2023 Cervical Cancer Screening 05/03/2027 Pap + HPV 05/03/2027 05/02/2022 Dental FMX/Pano 09/16/2029 09/14/2024 Hepatitis C Screening Completed 05/18/2013 HIV Screening Completed 05/03/2020 Imm-Zoster, Recombinant Completed 10/30/2020, 05/03 Alcohol and Drug Screen Completed 03/04/19, 11/02/2023, 03/05/2023, Additional history exists Cervical Ablation/Cold-Knife Conization Discontinued Cervical Cryotherapy Discontinued Colposcopy Discontinued Excision/Leep Discontinued HPV Genotyping Discontinued Vaginal Pap Discontinued Vulvoscopy Discontinued Procedures Procedure Name Priority Date/Time Associated Diagnosis Comments REFERRAL SCANNED DOCUMENT 12/12/2024 3:00 AM EDT OFFICE VISIT OBSERVATION NO OTHER SRVC PERFORMED Routine 11/25/2024 9:00 AM EDT Encounter for dental examination OTHER ORDERS SCANNED DOCUMENT 11/25/2024 3:00 AM EDT REFERRAL SCANNED DOCUMENT 11/23/2024 3:00 AM EDT CASE PRESENTATION SUBS DTL & EXTENSIVE TX PLN Routine 11/10/2024 9:00 AM EDT Erosion of teeth 28 B RESIN-BASED COMPOSITE - ONE SURFACE POSTERIOR Routine 11/10/2024 9:00 AM EDT Erosion of teeth 22 F RESIN-BASED COMPOSITE ONE SURFACE ANTERIOR Routine 11/10/2024 9:00 AM EDT Erosion of teeth 27 F RESIN-BASED COMPOSITE ONE SURFACE ANTERIOR Routine 11/10/2024 9:00 AM EDT Erosion of teeth 21 B RESIN-BASED COMPOSITE - ONE SURFACE POSTERIOR Routine 11/10/2024 9:00 AM EDT Erosion of teeth MEDICATIONS SCANNED DOCUMENT 11/08/2024 3:00 AM EDT CASE PRESENTATION SUBS DTL & EXTENSIVE TX PLN Routine 11/07/2024 9:40 AM EDT Dental caries on smooth surface penetrating into dentin 11 F RESIN-BASED COMPOSITE ONE SURFACE ANTERIOR Routine 11/07/2024 9:40 AM EDT Erosion of teeth Dental caries on smooth surface penetrating into dentin 10 MFL RESIN-BASED COMPOSITE THREE SURFACES ANTERIOR Routine 11/07/2024 9:40 AM EDT Erosion of teeth Dental caries on smooth surface penetrating into dentin MEDICATIONS SCANNED DOCUMENT 11/03/2024 3:00 AM EDT MEDICATIONS SCANNED DOCUMENT 11/02/2024 3:00 AM EDT CASE PRESENTATION SUBS DTL & EXTENSIVE TX PLN Routine 10/20/2024 9:00 AM EDT Erosion of teeth 9 F RESIN-BASED COMPOSITE ONE SURFACE ANTERIOR Routine 10/20/2024 9:00 AM EDT Erosion of teeth CASE PRESENTATION SUBS DTL & EXTENSIVE TX PLN Routine 10/07/2024 9:00 AM EDT Erosion of teeth 6 F RESIN-BASED COMPOSITE ONE SURFACE ANTERIOR Routine 10/07/2024 9:00 AM EDT Erosion of teeth MEDICATIONS SCANNED DOCUMENT 10/06/2024 3:00 AM EDT GLUCOSE, BLOOD BY GLUCOSE MONITORING DEVICE (CLIA WAIVED)POCT Routine 10/05/2024 10:32 AM EDT Type 2 diabetes mellitus with stage 3a chronic kidney disease, with long-term current use of insulin ([facility]) RFLX - REFLEXIVE URINE CULTURE Routine 09/28/2024 11:04 AM EDT Routine general medical examination at a [facility] care facility MICROALBUMIN/CREATINI NE RATIO, URINE, RANDOM Routine 09/28/2024 11:04 AM EDT Type 2 diabetes mellitus with stage 3a chronic kidney disease, with long-term current use of insulin ([facility] & [facility]-H[facility]) Migraine with aura and without status migrainosus, not intractable Chronic left shoulder pain VITAMIN B12 & FOLATE Routine 09/28/2024 11:04 AM EDT Type 2 diabetes mellitus with stage 3a chronic kidney disease, with long-term current use of insulin (CMS & HHS-HCC) Migraine with aura and without status migrainosus, not intractable Chronic left shoulder pain URINALYSIS, COMPLETE W/REFLEX TO CULTURE Routine 09/28/2024 11:04 AM EDT Type 2 diabetes mellitus with stage 3a chronic kidney disease, with long-term current use of insulin (CMS & HHS-HCC) Migraine with aura and without status migrainosus, not intractable Chronic left shoulder pain TSH W/RFLX FREE T4 Routine 09/28/2024 11 :04 AM EDT Type 2 diabetes mellitus with stage 3a chronic kidney disease, with long-term current use of insulin ([facility] & [facility]) Migraine with aura and without status migrainosus, not intractable Chronic left shoulder pain HGBA1C W/MPG Routine 09/28/2024 11:04 AM EDT Type 2 diabetes mellitus with stage 3a chronic kidney disease, with long-term current use of insulin (CMS & HHS-HCC) Migraine with aura and without status migrainosus, not intractable Chronic left shoulder pain LIPID PANEL Routine 09/28/2024 11:04 AM EDT Type 2 diabetes mellitus with stage 3a chronic kidney disease, with long-term current use of insulin (CMS & HHS-HCC) Migraine with aura and without status migrainosus, not intractable Chronic left shoulder pain BLOOD COUNT COMPLETE AUTOMATED Routine 09/28/2024 11:04 AM EDT Type 2 diabetes mellitus with stage 3a chronic kidney disease, with long-term current use of insulin (CMS & HHS-HCC) Migraine with aura and without status migrainosus, not intractable Chronic left shoulder pain COMPREHENSIVE METABOLIC PANEL Routine 09/28/2024 11:04 AM EDT Type 2 diabetes mellitus with stage 3a chronic kidney disease, with long-term current use of insulin ([facility]) Migraine with aura and without status migrainosus, not intractable Chronic left shoulder pain PROPHYLAXIS - ADULT Routine 09/27/2024 1 0:20 AM EDT Chronic gingivitis, plaque induced ORAL HYGIENE INSTRUCTIONS Routine 09/27/2024 10:20 AM EDT Chronic gingivitis, plaque induced INTRAORAL - COMP SERIES OF RADIOGRAPHIC IMAGES Routine 09/14/2024 11:00 AM EDT Bruxism (teeth grinding) Encounter for dental examination COMP ORAL EVALUATION - NEW/ESTABLISHED PATIENT Routine 09/14/2024 11:00 AM EDT Encounter for dental examination EYE EXAM 05/16/2024 3:00 AM EDT HISTORIC MAMMOGRAM 08/28/2023 3: 00 AM EDT THINPREP PAP & HPV MRNA E6/E7 RFLX HPV 16,18/[address]/NG Routine 05/02/2022 10:31 AM EST Encounter for Papanicolaou smear of vagina as part of routine gynecological examination Encounter for screening for human papillomavirus (HPV) ANTIBODY HIV-1&HIV-2 SINGLE RESULT Routine 05/03/2020 10:25 AM EST Screening for viral disease HEPATITIS A,B,C PANEL Routine 05/18/2013 12:00 AM EDT Routine general medical examination at a health care facility from Last 3 Months or Most Recently Relevant to Health Maintenance Results * REFERRAL SCANNED DOCUMENT (12/12/2024 3:00 AM EDT) Only the most recent of2 resultswithin the time period is included. 12/12/2024 3:00 AM EDT [facility] CONTROL PANEL ASSEMBLER SCAN REFERRAL Final Result * OTHER ORDERS SCANNED DOCUMENT (11/25/2024 3:00 AM EDT) 11/25/2024 3:00 AM EDT Aixa Gurung CONTROL PANEL ASSEMBLER SCAN OTHER ORDERS Final Result * MEDICATIONS SCANNED DOCUMENT (11/08/2024 3:00 AM EDT) Only the most recent of4 resultswithin the time period is included. 11/08/2024 3:00 AM EDT Aixa Goel CONTROL PANEL ASSEMBLER SCAN MEDS OTHER ORDERS Final R esult * (ABNORMAL) GLUCOSE, BLOOD BY GLUCOSE MONITORING DEVICE (CLIA WAIVED)POCT Routine (10/05/2024 10:32 AM EDT) GLUCOSE 236(A) 70 - 100 mg/dL [facility] POCT Capillary Blood Blood / Unknown 10:32 AM EDT Chavez Campbell PharmD LAB - BLOOD DRAW Final Re sult [facility] OFFICE POCT * (ABNORMAL) HGBA1C W/MPG Routine (09/28/2024 11:04 AM EDT) HEMOGLOBIN A1C 8.2(H) <5.7 % 09/29/2024 6:22 AM EDT [employer] [facility] MEAN PLASMA GLUCOSE 215 mg/dL (calc) 09/29/2024 6:22 AM EDT [employer] [facility] Blood Blood / Unknown 09/28/2024 1 1:04 AM EDT 09/29/2024 3:10 AM EDT Narrative [employer] [facility] - 09/29/2024 6:37 AM EDT FASTING:NO For someone without known diabetes, a hemoglobin A1c value of 6.5% or greater indicates that they may have diabetes and this should be confirmed with a follow-up test. . For someone with known diabetes, a value <7% indicates that their diabetes is well controlled and a value greater than or equal to 7% indicates suboptimal control. A1c targets should be individualized based on duration of diabetes, age, comorbid conditions, and other considerations. . Currently, no consensus exists regarding use of hemoglobin A1c for diagnosis of diabetes for children. . Aixa Goel [facility] LAB - BLOOD DRAW Final Result Performing Organization Address [facility]/ZIP Co de Phone Number [employer] [address] [address], [employer] [address] [address] * TSH W/RFLX FREE T4 Routine (09/28/2024 11:04 AM EDT) TSH W/REFLEX TO FT4 0.80 0.40 - 4.50 mIU/L 09/29/2024 6:18 AM EDT [employer] [facility] Blood Blood / Unknown 09/28/2024 1 1:04 AM EDT 09/29/2024 5:03 AM EDT Narrative [employer] [facility] - 09/29/2024 6:37 AM EDT FASTING:NO Aixaelmer Goel [facility] LAB - BLOOD DRAW Final Result Performing Organization Address [facility] de Phone Number [employer] [address] [address], [employer] [address] [address] * (ABNORMAL) URINALYSIS, COMPLETE W/REFLEX TO CULTURE Urine Routine (09/28/2024 11:04 AM EDT) COLOR YELLOW YELLOW 09/29/2024 3:21 AM EDT [employer] [facility] APPEARANCE CLEAR CLEAR 09/29/2024 3:21 AM EDT [employer] [facility] SPECIFIC GRAVITY 1.010 1.001 - 1.035 09/29/2024 3:21 AM EDT [employer] [facility] URINE PH < OR = 5.0(A) 5.0 - 8.0 09/29/2024 3:21 AM EDT [employer] [facility] GLUCOSE 1+(A) NEGATIVE 09/29/2024 3:21 AM EDT [employer] [facility] BILIRUBIN NEGATIVE NEGATIVE 09/29/2024 3:21 AM EDT [employer] [facility] KETONES NEGATIVE NEGATIVE 09/29/2024 3:21 AM EDT [employer] [facility] OCCULT BLOOD NEGATIVE NEGATIVE 09/29/2024 3:21 AM EDT [employer] [facility] URINE PROTEIN NEGATIVE NEGATIVE 09/29/2024 3:21 AM EDT [employer] NITRITE NEGATIVE NEGATIVE 09/29/2024 3:21 AM EDT [employer] [facility] LEUKOCYTE ESTERASE NEGATIVE NEGATIVE 09/29/2024 3:21 AM EDT [employer] [facility] URINE LEUKOCYTES NONE SEEN 0 - 5 /HPF 09/29/2024 3:21 AM EDT [employer] [facility] RBC NONE SEEN 0 - 2 /HPF 09/29/2024 3:21 AM EDT [employer] [facility] SQUAMOUS EPITHELIAL CELLS NONE SEEN < OR = 5 /HPF 09/29/2024 3:21 AM EDT [employer] BACTERIA NONE SEEN NONE SEEN /HPF 09/29/2024 3:21 AM EDT [employer] HYALINE CAST NONE SEEN NONE SEEN /LPF 09/29/2024 3:21 AM EDT [employer] SEE NOTE SEE NOTE 09/29/2024 3:21 AM EDT [employer] [facility] Urine Urine specimen / Unknown 09/28/2024 11:04 AM EDT 09/29/2024 2:57 AM EDT [employer] [facility] - 09/29/2024 3:46 AM EDT FASTING:NO This urine was analyzed for the presence of WBC, RBC, bacteria, casts, and other formed elements. Only those elements seen were reported. . . Aixa Goel CONTROL PANEL ASSEMBLER LAB URINE AMBULATORY Final Res ult [employer] [address] [address], [employer] [address] [address] * RFLX - REFLEXIVE URINE CULTURE Routine (09/28/2024 11:04 AM EDT) REFLEXIVE URINE CULTURE SEE NOTE 09/29/2024 3:21 AM EDT [employer] 09/28/2024 11:0 4 AM EDT 09/29/2024 2:57 AM EDT [employer] [facility] - 09/29/2024 3:46 AM EDT FASTING:NO NO CULTURE INDICATED Aixa Geol [facility] LAB - MICROBIOLOGY AMBULATORY Final Result Performing Organization Address [facility] de Phone Number [employer] [address] [address], [employer] [address] [address] * (ABNORMAL) MICROALBUMIN/CREATININE RATIO, URINE, RANDOM Urine Routine (09/28/2024 11:04 AM EDT) CREATININE, RANDOM URINE 50 20 - 275 mg/dL 09/29/2024 4:41 PM EDT [employer] MICROALBUMIN 2.7 mg/dL 09/29/2024 4:41 PM EDT [employer] [facility] MICROALBUMIN/CRE ATININE RATIO, RANDOM URINE 54(H) <30 mg/g creat 09/29/2024 4:41 PM EDT [employer] [facility] Urine Urine specimen / Unknown 09/28/2024 11:04 AM EDT 09/29/2024 5:51 AM EDT Narrative [employer] [facility] - 09/29/2024 4:43 PM EDT FASTING:NO Reference Range Not established . The ADA defines abnormalities in albumin excretion as follows: . Albuminuria Category Result (mg/g creatinine) . Normal to Mildly increased <30 Moderately increased 30-299 Severely increased > OR = 300 . The ADA recommends that at least two of three specimens collected within a 3-6 month period be abnormal before considering a patient to be within a diagnostic category. Aixa Goel [facility] URINE AMBULATORY Final Res ult Performing Organization Address [facility]/ZIP Co de Phone Number [employer] [address] [address], [employer] [address] [address] * VITAMIN B12 & FOLATE Routine (09/28/2024 11:04 AM EDT) VITAMIN B12 432 200 - 1,100 pg/mL 09/29/2024 6:18 AM EDT [employer] FOLATE, SERUM 5.7 ng/mL 09/29/2024 6:18 AM EDT [employer] [facility] Blood Blood / Unknown 09/28/2024 1 1:04 AM EDT 09/29/2024 5:03 AM EDT Narrative [employer] [facility] - 09/29/2024 6:37 AM EDT FASTING:NO Reference Range Low: <3.4 Borderline: 3.4-5.4 Normal: >5.4 . Aixa Goel [facility] LAB - BLOOD DRAW Final Result [facility] [address] [address], [employer] [address] [address] * (ABNORMAL) BLOOD COUNT COMPLETE AUTOMATED Routine (09/28/2024 11:04 AM EDT) WHITE BLOOD CELL COUNT 10.3 3.8 - 10.8 Thousand/ uL 09/29/2024 4:14 AM EDTransCardiac Therapeutics [facility] RED BLOOD CELL COUNT 4.20 3.80 - 5.10 Million/u L 09/29/2024 4:14 AM [employer] [facility] HEMOGLOBIN 11.4(L) 11.7 - 15.5 g/dL 09/29/2024 4:14 AM EDTransCardiac Therapeutics [facility] HEMATOCRIT 37.2 35.0 - 45.0 % 09/29/2024 4:14 AM [employer] [facility] MCV 88.6 80.0 - 100.0 fL 09/29/2024 4:14 AM EDTransCardiac Therapeutics [facility] MCH 27.1 27.0 - 33.0 pg 09/29/2024 4:14 AM EDTransCardiac Therapeutics [facility] MCHC 30.6(L) 32.0 - 36.0 g/dL 09/29/2024 4:14 AM EDT [employer] [facility] RDW 13.2 11.0 - 15.0 % 09/29/2024 4:14 AM EDTransCardiac Therapeutics [facility] PLATELET COUNT 185 140 - 400 Thousand/ uL 09/29/2024 4:14 AM [employer] [facility] MPV 12.8(H) 7.5 - 12.5 fL 09/29/2024 4:14 AM [employer] Blood Blood / Unknown 09/28/2024 1 1:04 AM EDT 09/29/2024 3:10 AM EDT Narrative [employer] [facility] - 09/29/2024 4:37 AM EDT FASTING:NO For adults, a slight decrease in the calculated MCHC value (in the range of 30 to 32 g/dL) is most likely not clinically significant; however, it should be interpreted with caution in correlation with other red cell parameters and the patient's clinical condition. Aixa Goel [facility] LAB - BLOOD DRAW Final Result [employer] [address] [address], [employer] [facility] [address] [place] [address] * LIPID PANEL Routine (09/28/2024 11:04 AM EDT) CHOLESTEROL, TOTAL 158 <200 mg/dL 09/29/2024 6:16 AM EDT [employer] [facility] HDL CHOLESTEROL 50 > OR = 50 mg/dL 09/29/2024 6:16 AM EDT [employer] [facility] TRIGLYCERIDES 139 <150 mg/dL 09/29/2024 6:16 AM EDT [employer] [facility] LDL-CHOLESTEROL 84 mg/dL (calc) 09/29/2024 6:16 AM EDT [employer] CHOL/HDLC RATIO 3.2 <5.0 (calc) 09/29/2024 6:16 AM EDT [employer] [facility] NON-HDL CHOLESTEROL 108 <130 mg/dL (calc) 09/29/2024 6:16 AM EDT [employer] [facility] Blood Blood / Unknown 09/28/2024 1 1:04 AM EDT 09/29/2024 5:03 AM EDT Narrative [facility] [employer] [facility] - 09/29/2024 6:37 AM EDT FASTING:NO Reference range: <100 . Desirable range <100 mg/dL for primary prevention; <70 mg/dL for patients with CHD or diabetic patients with > or = 2 CHD risk factors. . LDL-C is now calculated using the Kit-Beckett calculation, which is a validated novel method providing better accuracy than the Friedewald equation in the estimation of LDL-C. Kit MUELLER et al. REJI. 2013;310(19): 2889-4740 (http://education.Rallyware/faq/PFI993) For patients with diabetes plus 1 major ASCVD risk factor, treating to a non-HDL-C goal of <100 mg/dL (LDL-C of <70 mg/dL) is considered a therapeutic option. Aixa Goel [facility] LAB - BLOOD DRAW Final Result [employer] [address] [address], [employer] [address] [address] * (ABNORMAL) COMPREHENSIVE METABOLIC PANEL Routine (09/28/2024 11:04 AM EDT) GLUCOSE 246(H) 65 - 139 mg/dL 09/29/2024 6:16 AM [employer] [facility] UREA NITROGEN (BUN) 25 7 - 25 mg/dL 09/29/2024 6:16 AM [employer] [facility] CREATININE (blood) 1.17(H) 0.50 - 1.05 mg/dL 09/29/2024 6:16 AM [employer] [facility] EGFR 53(L) > OR = 60 mL/min/1. 73m2 09/29/2024 6:16 AM [employer] [facility] BUN/CREATININE RATIO 21 6 - 22 (calc) 09/29/2024 6:16 AM [employer] [facility] SODIUM 135 135 - 146 mmol/L 09/29/2024 6:16 AM EDTransCardiac Therapeutics [facility] POTASSIUM 4.7 3.5 - 5.3 mmol/L 09/29/2024 6:16 AM [employer] [facility] CHLORIDE 101 98 - 110 mmol/L 09/29/2024 6:16 AM [employer] [facility] CARBON DIOXIDE 26 20 - 32 mmol/L 09/29/2024 6:16 AM [employer] [facility] CALCIUM 9.4 8.6 - 10.4 mg/dL 09/29/2024 6:16 AM [employer] [facility] PROTEIN, TOTAL 7.2 6.1 - 8.1 g/dL 09/29/2024 6:16 AM EDT [employer] [facility] ALBUMIN 4.1 3.6 - 5.1 g/dL 09/29/2024 6:16 AM EDT [employer] [facility] GLOBULIN 3.1 1.9 - 3.7 g/dL (calc) 09/29/2024 6:16 AM EDT [employer] [facility] ALBUMIN/GLOBULI N RATIO 1.3 1.0 - 2.5 (calc) 09/29/2024 6:16 AM EDT [employer] [facility] BILIRUBIN, TOTAL 0.4 0.2 - 1.2 mg/dL 09/29/2024 6:16 AM EDT [employer] [facility] ALKALINE PHOSPHATASE 68 37 - 153 U/L 09/29/2024 6:16 AM EDT [employer] [facility] AST 23 10 - 35 U/L 09/29/2024 6:16 AM EDT [employer] [facility] ALT 30(H) 6 - 29 U/L 09/29/2024 6:16 AM EDT [employer] [facility] Blood Blood / Unknown 09/28/2024 1 1:04 AM EDT 09/29/2024 5:03 AM EDT Narrative [employer] [facility] - 09/29/2024 6:37 AM EDT FASTING:NO . Non-fasting reference interval . Aixa Goel CONTROL PANEL ASSEMBLER LAB - BLOOD DRAW Final Result [facility] [employer] [address] [address], [employer] [address] [address] * EYE EXAM (05/16/2024 3:00 AM EDT) 05/16/2024 3:00 AM EDT Libby Ye PA-C OTHER Final Resul t * HISTORIC MAMMOGRAM (08/28/2023 3:00 AM EDT) 08/28/2023 3:00 AM EDT Aixa Goel CONTROL PANEL ASSEMBLER IMG MAMMO Edited Result - Final * THINPREP PAP & HPV MRNA E6/E7 RFLX HPV 16,18/[address]/NG (05/02/2022 10:31 AM EST) CHLAMYDIA TRACHOMATIS RNA, TMA NOT DETECTED NOT DETECTED [employer] NEISSERIA GONORRHOEAE RNA, TMA NOT DETECTED NOT DETECTED [employer] COMMENT [facility] [facility] CLINICAL INFORMATION See Note [employer] Comment:Routine exam LMP See Note [employer] Comment:[id number] PREV. PAP See Note [employer] Comment:NONE GIVEN PREV. BX See Note [employer] Comment:NONE GIVEN SOURCE See Note [employer] Comment:Cervix STATEMENT OF ADEQUACY See Note [employer] Comment: Satisfactory for evaluation. Endocervical/transformation zone component present. INTERPRETATION/RESU LT See Note [employer] Comment:Negative for intraep ithelial lesion or malignancy. DIRECTOR AIRPORT See Note [facility] [email or web address] Comment: DMM, CT(ASCP) CT screening location: [place] [address] PATHOLOGIST See Note [employer] Comment: Deepa Wu D.O. Board Certified in Anatomic, Clinical and Cytopathology (electronic signature) Consulting Pathologist [facility] [address] [place] [address] COMMENT [employer] HPV MRNA E6/E7 Not Detected Not Detected [facility] [facility] Comment: Methodology: Political Theory Professor-Mediated Amplification This assay detects E6/E7 viral messenger RNA (mRNA) from 14 high-risk HPV types (16,18,31,33,35,39,45,51,52,56,58,59,66,68). Cervical sources are required for HPV testing. If a vaginal source from a patient who has had a total hysterectomy with removal of cervix was submitted, please contact the testing laboratory for alternative testing options. For additional information, please refer to http://education.[employer]ise Software/faq/ZEV469p0 (This link if provided for information/ educational purposes only.) CYTOLOGY Cervix uteri structure / Unknown 05/02/2022 10:31 AM EST 05/03/2022 9:34 AM EST Narr[employer] [facility] - 05/09/2022 11:12 AM EDT EXPLANATORY NOTE: The Pap is a screening test for cervical cancer. It is not a diagnostic test and is subject to false negative and false positive results. It is most reliable when a satisfactory sample, regularly obtained, is submitted with relevant clinical findings and history, and when the Pap result is evaluated along with historic and current clinical information. The analytical performance characteristics of this assay, when used to test SurePath(TM) specimens have been determined by [employer]. The modifications have not been cleared or approved by the FDA. This assay has been validated pursuant to the CLIA regulations and is used for clinical purposes. For additional information, please refer to https://education.[employer]/faq/XYZ676 (This link is being provided for information/ educational purposes only.) Pedro Price MD LAB - PATHOLOGY AND CYTOLOGY AMB ULATORY Final Result [employer] [address] [place] [address] [address] [place] [address], [employer] [address] ([address]) [place] [address] * HIV-1 & HIV-2 ANTIBODIES (05/03/2020 10:25 AM EST) [facility] HIV 1 AND 2 ANTIBODY SCREEN NEGATIVE NEGATIVE [employer] [facility] Comment: This assay is a 4th generation assay allowing for earlier detection of HIV infection by detecting the presence of the HIV-1 p24 antigen as well as the traditional antibodies to HIV type 1 (including group O) and type 2. Use of a 4th generation assay is the current CDC recommendation for HIV screening. Blood Blood / Unknown 05/03/2020 1 0:25 AM EST 05/03/2020 10:36 AM EST [facility] [employer] - 05/03/2020 12:56 PM EST [employer], a member of [address] [address] Aeronautical Design Engineer - Deena Webb MD PT ID [id number] ORD# [id number] Nancie MAYES LAB - BLOOD DRAW Final Result Performing Organization Address City/[facility]/ZIP Co de Phone Number [address] [address], * (ABNORMAL) HEPATITIS A,B,C PANEL (05/18/2013 12:00 AM EDT) HEPATITIS B SURFACE ANTIBODY POSITIVE(A) NEGATIVE [facility] HEPATITIS B SURFACE ANTIGEN NEGATIVE NEGATIVE [facility] HEPATITIS C VIRUS ANTIBODY NEGATIVE NEGATIVE [facility] HEPATITIS A ANTIBODY TOTAL POSITIVE(A) NEGATIVE [facility] HEPATITIS B CORE ANTIBODY NEGATIVE NEGATIVE [facility] Blood specimen (specimen) Blood / Unknown 05/18/2013 05/18/2013 4:[address] [facility] - 05/18/2013 6:19 PM EDT [facility] [employer] [address] [place] [address] PT ID [id number] ORD# [id number] Rajwinder Mayfield MD LAB - BLOOD DRAW Edited Performing Organization Address City/[facility]/ZIP Co de Phone Number [address] [address], from Last 3 Months or Most Recently Relevant to Health Maintenance Insurance [employer] DENTAL [facility] [employer] [address] ACO Care Teams Professional Advisor Relationship Specialty Start Date End Date Aixa Goel FNP [address] [place] [id number] PCP - General Internal Medicine 03/20/21
--- OUTSIDE RECORDS SUMMARY | 2024-12-20 13:00 | XMS_ITS | Clinical Summary ---
Author Organization [facility] it Address [address] [place] [address] Care Team Providers Care Information Systems Analyst Name Role Phone Aixa Goel NP Primary Care Provider [phone] Immunizations Immunization Administration Dates Next Due Pfizer SARS-CoV-2 COVID-19, mRNA, LNP-S, preservative free 02/28/2021 Surgical History Surgery Date Site/Laterality Comments COLONOSCOPY PROCEDURE: HISTORICAL COLONOSCOPY COLONOSCOPY PROCEDURE: HISTORICAL COLONOSCOPY; COMMENT: Performed in 2016 ESOPHAGOGASTRODUODENOSCOPY PROCEDURE: AK EGD TRANSORAL BIOPSY SINGLE/MULTIPLE; COMMENT: Performed with colonoscopy on January 15-slight inflammation in the colon Medical History Medical History Date Comments Nausea DX:Nausea Epigastric pain DX:Epigastric pa in Abdominal pain DX:Abdominal kulwinder n Abdominal cramping DX:Abdominal cramping Decreased appetite DX:Decreased appetite Postprandial epigastric pain DX: Postprandial epigastric pain Purulent appendicitis DX:Purulen t appendicitis Gastritis DX:Gastritis Hyperplastic colon polyp DX:Hype rplastic colon polyp Social History Tobacco Use Types Packs/Day Years Used Date Smoking Tobacco: Never Assessed Comments Unknown Sex and Gender Information Value Date Recorded Sex Assigned at Not on file Legal Sex Female 2:53 PM EST Gender Identity Not on file Sexual Orientation Not on file Obstetrics History Last Filed Vital Signs Vital Sign Reading Time Taken Comments Blood Pressure - - Pulse - - Temperature - - Respiratory Rate - - Oxygen Saturation - - Inhaled Oxygen Concentration - - Weight 74.4 kg (164 lb) 12/09/2023 10:06 AM EDT Height - - Body Mass Index - - Plan of Treatment Health Maintenance Due Date Last Done Comments Breast Cancer Screening 1963 Colorectal Cancer Screening: Colonoscopy 1963 Diabetes: Annual Foot Exam 1973 Diabetes: Annual Retina Eye Exam 1973 Hepatitis A Vaccines (1 of 2 - Risk 2-dose series) 1982 Cervical Cancer Screening: Pap Smear 01/09/1984 RSV Immunization Adult Patients (1 - Risk 50-74 years 1-dose series) 2013 Hepatitis C Screening 01/22/2022 Social Influencers of Health Screening 01/22/2022 Hepatitis B Vaccines (1 of 3 - Risk 3-dose series) 2023 Pneumococcal Vaccine: 50+ Years (3 of 3 - PCV20 or PCV21) 11/26/2023 11/25/2018, 03/23/2015 Depression Screening 02/24/2024 COVID-19 Vaccine ( season) 2024 11/01/2021, 02/28/2021, 08/28/2020, Additional history exists Influenza Vaccine (#1) 2024 , 11/05/2022, 04/04/2022, Additional history exists DTaP,Tdap,and Td Vaccines (2 - Td or Tdap) 03/23/2025 03/23/2015 Diabetes: Blood Sugar Control Test (HGBA1C) 03/31/2025 09/28/2024, 04/29/2024, 04/29/2024, Additional history exists Diabetes: Annual GFR (Glomerular Filtration Rate) 09/28/2025 09/28/2024, 08/11/2023 Hypertension/CHF/CAD Annual BMP Blood Test 09/28/2025 09/28/2024, 08/11/2023 Diabetes: Annual Urine Albumin-Creatinine Ratio (uACR) 11/07/2025 11/07/2024, 04/29/2024, 11/02/2023, Additional history exists Cholesterol Screening (Lipid Panel) 09/28/2029 09/28/2024, 04/29/2024, 06/03/2023, Additional history exists HIV Screening Completed 05/03/2020 Zoster Vaccines Completed 10/30/2020, 05/03/2020 HIB Vaccines Aged Out No longer eligi ble based on patient's age to complete this topic HPV Vaccines Aged Out No longer eligi ble based on patient's age to complete this topic IPV Vaccines Aged Out No longer eligi ble based on patient's age to complete this topic MMR Vaccines Aged Out No longer eligi ble based on patient's age to complete this topic Meningococcal ACWY Vaccine Aged Out N o longer eligible based on patient's age to complete this topic Meningococcal B Vaccine Aged Out No l onger eligible based on patient's age to complete this topic RSV Immunization Patients Under 20 months Aged Out No longer eligible based on patient's age to complete this topic Varicella Vaccines Aged Out No longer eligible based on patient's age to complete this topic Advance Directives Documents on File Type Date Recorded Patient Product Assurance Engineer Expl anation Health Care Decision (hx) 03/19/2021 AD KHAN DIRECTIVE Health Care Decision (hx) 03/19/2021 AD KHAN DIRECTIVE Health Care Decision (hx) 03/19/2021 AD KHAN DIRECTIVE Health Care Decision (hx) 03/19/2021 AD KHAN DIRECTIVE Health Care Decision (hx) 03/19/2021 AD KHAN DIRECTIVE Health Care Decision (hx) 03/19/2021 AD KHAN DIRECTIVE Health Care Decision (hx) 03/19/2021 AD KHAN DIRECTIVE Health Care Decision (hx) 03/19/2021 AD KHAN DIRECTIVE Care Teams Information Systems Analyst Relationship Specialty Start Date End Date Aixa Goel NP [address] [place] [id number] PCP - General 09/08/23
--- OUTSIDE RECORDS SUMMARY | 2024-12-20 13:01 | XMS_ITS | Encounter Summary ---
Author Organization [facility] Address [address] [place] [address] Phone Care Team Providers Care Senior Project Controls Specialist Name Role Phone Nacnie Solis STICK PULLER Primary Care Provider Unavailabl e Encounter Details Date Type Department Care Team (Late Contact Info) Description 07/28/2023 Documentation Only [facility] [address] [place] [phone] Raquel Machado [address] [place] [address] Social History Tobacco Use Types Packs/Day Years Used Date Smoking Tobacco: Never Smokeless Tobacco: Never Comments Unknown Sex and Gender Information Value Date Recorded Sex Assigned at Not on file Legal Sex Female 10:56 AM EDT Gender Identity Not on file Sexual Orientation Not on file documented as of this encounter Plan of Treatment Upcoming Encounters Date Type Department Care Team (Late st Contact Info) Description 04/27/2025 3:00 PM EST Office Visit [facility] [address] [place] [address] Debbie Chester MD [address] [place] [address] [place] [phone] documented as of this encounter Visit Diagnoses Not on filedocumented in this encounter Care Teams Senior Project Controls Specialist Relationship Specialty Start Date End Date Nancie Solis NP 85 [facility] [address] [place] [address] PCP - General Nurse Practitioner 01/28/24 documented as of this encounter
--- OUTSIDE RECORDS SUMMARY | 2024-12-20 13:01 | XMS_ITS | Encounter Summary ---
Author Organization [facility] Address [address] [place] [address] Phone Care Team Providers Care Food Mobile Driver Name Role Phone Nancie Solis CERTIFIED VETERINARY TECHNICIAN Primary Care Provider Unavailabl e Encounter Details Date Type Department Care Team (Late Contact Info) Description 07/28/2023 Documentation Only [facility] [address] [place] [phone] Raquel Machado [address] [place] [address] Social History Tobacco Use Types [...] Visit [facility] [address] [place] [phone] Debbie Chester MD [address] [place] [address] [place] [phone] documented as of this encounter Visit Diagnoses Not on filedocumented in this encounter Care Teams Food Mobile Driver Relationship Specialty Start Date End Date Nancie Solis NP 85 [facility] [address] [place] [address] PCP - General Nurse Practitioner 01/28/24 documented as of this encounter
--- OUTSIDE RECORDS SUMMARY | 2024-12-20 13:01 | XMS_ITS | Encounter Summary ---
Author Organization [facility] Address [address] [place] [address] Phone Care Team Providers Care Tube Builder Airplane Name Role Phone Nancie Solis BETTING CLERK Primary Care Provider Unavailabl e Encounter Details Date Type Department Care Team (Late Contact Info) Description 01/27/2024 Documentation Only [facility] [address] [place] [phone] Raquel Machado [address] [place] [address] Social History Tobacco Use Types [...] Visit [facility] [address] [place] [phone] Debbie Chester MD [address] [place] [address] [place] [phone] documented as of this encounter Visit Diagnoses Not on filedocumented in this encounter Care Teams Tube Builder Airplane Relationship Specialty Start Date End Date Nancie Solis NP 85 [facility] [address] [place] [address] PCP - General Nurse Practitioner 01/28/24 documented as of this encounter
--- OUTSIDE RECORDS SUMMARY | 2024-12-20 13:01 | XMS_ITS | Encounter Summary ---
Author Organization [facility] Address [address] [place] [address] Phone Care Team Providers Care Lan Engineer Name Role Phone Nancie Solis DRAFTER (CAD) ELECTRICAL Primary Care Provider Unavailabl e Encounter Details Date Type Department Care Team (Late Contact Info) Description 07/28/2023 Documentation Only [facility] [address] [place] [phone] Raquel Machado [address] [place] [address] Social History Tobacco Use Types [...] Visit [facility] [address] [place] [phone] Debbie Chester MD [address] [place] [address] [place] [phone] documented as of this encounter Visit Diagnoses Not on filedocumented in this encounter Care Teams Lan Engineer Relationship Specialty Start Date End Date Nancie Solis NP 85 [facility] [address] [place] [address] PCP - General Nurse Practitioner 01/28/24 documented as of this encounter
--- OUTSIDE RECORDS SUMMARY | 2024-12-20 13:01 | XMS_ITS | Encounter Summary ---
Author Organization [facility] Address [address] [place] [address] Phone Care Team Providers Care Boiler Shop Supervisor Name Role Phone Nancie Solis PYROTECHNICS PRESS TENDER Primary Care Provider Unavailabl e Encounter Details Date Type Department Care Team (Late Contact Info) Description 07/29/2023 Documentation Only [facility] [address] [place] [phone] Raquel Machado [address] [place] [address] Social History Tobacco Use Types [...] Visit [facility] [address] [place] [phone] Debbie Chester MD [address] [place] [address] [place] [phone] documented as of this encounter Visit Diagnoses Not on filedocumented in this encounter Care Teams Boiler Shop Supervisor Relationship Specialty Start Date End Date Nancie Solis NP 85 [facility] [address] [place] [address] PCP - General Nurse Practitioner 01/28/24 documented as of this encounter
--- OUTSIDE RECORDS SUMMARY | 2024-12-20 13:01 | XMS_ITS | Encounter Summary ---
Author Organization [facility] Address [address] [place] [address] Phone Care Team Providers Care Munitions Handler Supervisor Name Role Phone Nancie Solis INCIDENT RESPONSE COORDINATOR Primary Care Provider Unavailabl e Encounter Details Date Type Department Care Team (Late Contact Info) Description 06/10/2023 Documentation Only [facility] [address] [place] [phone] [place] [address] [place] [address] Social History Tobacco Use Types Packs/Day Years Used Date Smoking Tobacco: Never Assessed Comments Unknown Sex and Gender Information Value Date Recorded Sex Assigned at Not on file Legal Sex Female 10:56 AM EDT Gender Identity Not on file Sexual Orientation Not on file documented as of this encounter Plan of Treatment Upcoming Encounters Date Type Department Care Team (Late Contact Info) Description 04/27/2025 3:00 PM EST Office Visit [facility] [address] [place] [phone] Debbie Chester MD [address] [facility] [place] [phone] documented as of this encounter Visit Diagnoses Not on filedocumented in this encounter Care Teams Munitions Handler Supervisor Relationship Specialty Start Date End Date Nancie Solis NP 85 [facility] [address] [place] [address] PCP - General Nurse Practitioner 01/28/24 documented as of this encounter
--- OUTSIDE RECORDS SUMMARY | 2024-12-20 13:01 | XMS_ITS | Encounter Summary ---
Author Organization [facility] Address [address] [place] [address] Phone Care Team Providers Care Environmental Compliance Technician Name Role Phone Nancie Solis ELEVATOR SERVICEMAN Primary Care Provider Unavailabl e Encounter Details Date Type Department Care Team (Late Contact Info) Description 07/28/2023 Documentation Only [facility] [address] [place] [phone] Raquel Machado [address] [place] [address] Social History Tobacco Use Types [...] Visit [facility] [address] [place] [phone] Debbie Chester MD [address] [place] [address] [place] [phone] documented as of this encounter Visit Diagnoses Not on filedocumented in this encounter Care Teams Environmental Compliance Technician Relationship Specialty Start Date End Date Nancie Solis NP 85 [facility] [address] [place] [address] PCP - General Nurse Practitioner 01/28/24 documented as of this encounter
--- OUTSIDE RECORDS SUMMARY | 2024-12-20 13:01 | XMS_ITS | Encounter Summary ---
Author Organization [facility] Address [address] [place] [address] Phone Care Team Providers Care Shoe Laster Name Role Phone Nancie Solis LIQUOR MAKER Primary Care Provider Unavailabl e Encounter Details Date Type Department Care Team (Late Contact Info) Description 07/28/2023 Documentation Only [facility] [address] [place] [phone] Raquel Machado [address] [place] [address] Social History Tobacco Use Types [...] Visit [facility] [address] [place] [phone] Debbie Chester MD [address] [place] [address] [place] [phone] documented as of this encounter Visit Diagnoses Not on filedocumented in this encounter Care Teams Shoe Laster Relationship Specialty Start Date End Date Nancie Solis NP 85 [facility] [address] [place] [address] PCP - General Nurse Practitioner 01/28/24 documented as of this encounter
--- OUTSIDE RECORDS SUMMARY | 2024-12-20 13:02 | XMS_ITS | Encounter Summary ---
Author Organization [facility] Address [address] [place] [address] Phone Care Team Providers Care Supervisor Quilting Name Role Phone Nancie Solis MANAGER FIRE Primary Care Provider Unavailabl e Encounter Details Date Type Department Care Team (Late Contact Info) Description 01/27/2024 Documentation Only [facility] [address] [place] [phone] Raquel Machado [address] [place] [address] Social History Tobacco Use Types [...] Visit [facility] [address] [place] [phone] Debbie Chester MD [address] [place] [address] [place] [phone] documented as of this encounter Visit Diagnoses Not on filedocumented in this encounter Care Teams Supervisor Quilting Relationship Specialty Start Date End Date Nancie Solis NP 85 [facility] [address] [place] [address] PCP - General Nurse Practitioner 01/28/24 documented as of this encounter
--- OUTSIDE RECORDS SUMMARY | 2024-12-20 13:02 | XMS_ITS | Encounter Summary ---
Author Organization [facility] Address [address] [place] [address] Phone Care Team Providers Care Jet Blade Polisher Name Role Phone Nancie Solis OUTGOING INSPECTOR Primary Care Provider Unavailabl e Encounter Details Date Type Department Care Team (Late Contact Info) Description 05/02/2024 Documentation Only [facility] [address] [place] [phone] Raquel Machado [address] [place] [address] Social History Tobacco Use Types [...] Visit [facility] [address] [place] [phone] Debbie Chester MD [address] [place] [address] [place] [phone] documented as of this encounter Visit Diagnoses Not on filedocumented in this encounter Care Teams Jet Blade Polisher Relationship Specialty Start Date End Date Nancie Solis NP 85 [facility] [address] [place] [address] PCP - General Nurse Practitioner 01/28/24 documented as of this encounter
--- OUTSIDE RECORDS SUMMARY | 2024-12-20 13:02 | XMS_ITS | Clinical Summary ---
Author Organization [facility], Address [address] [address] Phone Care Team Providers Care Public Policy Analyst Name Role Phone Nancie Solis NP Primary Care Provider Maegan albright Allergies Active Allergy Reactions Criticality Noted Date Comments Amoxicillin Rash Low 07/26/2013 Skin itching, rash on medication that resolved after stopping medication . Clotrimazole Itching,Rash Medium 05/02/2014 Doxycycline Rash Low 01/14/2017 Dust Mite Extract Other (see comments) 05/22/2015 Empagliflozin 07/28/2023 Fremanezumab 07/28/2023 itchy red rash at injection site, SOB. Grass Pollen Standardized Ext Other (see comments) Low 05/22/2015 Insect Extract 05/22/2015 Cockroach. Lisinopril Other (see comments),Rash Low 06/03/2018 Metformin 07/28/2023 Other 07/28/2023 INSECTS: COCKROACH Sulfa Antibiotics Rash Low 09/06/2014 Medications triamcinolone (KENALOG) 0.1 % cream 1 Active sertraline (ZOLOFT) 100 MG tablet Take 100 mg by mouth 1 (one) time each day 1 Active sertraline (ZOLOFT) 25 MG tablet Take 25 mg by mouth 1 (one) time each day 1 Active ondansetron (ZOFRAN) 4 MG tablet Take 4 mg by mouth every 8 (eight) hours if needed 1 Active omeprazole (PriLOSEC) [address] capsule TAKE 1 CAPSULE BY MOUTH EVERY MORNING BEFORE BREAKFAST 1 Active montelukast (SINGULAIR) 10 MG tablet Take 10 mg by mouth at bed time 1 Active Myrbetriq 50 MG tablet sustained-relea se 24 hour Take 1 tablet by mouth 1 (one) time each day 1 Active metFORMIN (GLUCOPHAGE) 1000 MG tablet TAKE 1 TABLET BY MOUTH TWICE DAILY WITH A MEAL 1 Active meclizine (ANTIVERT) 25 MG tablet TAKE 1 TABLET BY MOUTH EVERY 6 HOURS NEEDED FOR DIZZINESS 1 Active levothyroxine (SYNTHROID, LEVOTHROID) 88 MCG tablet Take 88 mcg by mouth 1 (one) time each day 1 Active ketotifen (ZADITOR) 0.025 % ophthalmic solution INSTILL 1 DROP IN BOTH EYES TWICE DAILY 1 Active hydroCHLOROthia zide 12.5 MG tablet Take 12.5 mg by mouth 1 (one) time each day 1 Active gabapentin (NEURONTIN) 100 MG capsule Take 100 mg by mouth 2 (two) times a day 1 Active Ajovy 225 MG/1.5ML solution auto-injector INJECT 1 PRE-FILLED SYRINGE DIRECTED EVERY 28 DAYS 1 Active ferrous sulfate 324 (65 Fe) MG EC tablet TAKE 1 TABLET BY MOUTH TWICE DAILY WITH A MEAL 1 Active doxepin (SINEquan) 10 MG capsule TAKE 3 CAPSULES BY MOUTH EVERY NIGHT AT BEDTIME 1 Active Cholecalciferol (Vitamin D3) 50 MCG (2000 UT) tablet Take 1 tablet by mouth 1 (one) time each day 1 Active cephalexin (KEFLEX) 500 MG capsule Take 500 mg by mouth 3 times a day 1 Active budesonide (RHINOCORT AQ) 32 MCG/ACT nasal spray USE 2 SPRAYS INTO EACH NOSTRIL EVERY DAY 1 Active atorvastatin (LIPITOR) 20 MG tablet Take 20 mg by mouth 1 (one) time each day 1 Active ammonium lactate (AMLACTIN) 12 % cream APPLY TO AFFECTED AREA NEEDED 1 Active amitriptyline (ELAVIL) 25 MG tablet Take 25 mg by mouth at bed time 1 Active alclomethasone (ACLOVATE) 0.05 % cream APPLY TOPICALLY TO FACE TWICE DAILY NEEDED Active Active Problems Problem Noted Date Diagnosed Date Chronic kidney disease stage 3B 02/23/2020 Dyslipidemia 09/17/2015 Neuropathy 12/20/2014 Overview (08/21/2020): Both leg pain ? Diabetic neuropathy - on neurontin Seen at [facility] 07/02/16- Pt features of left LE neurpathic pain with pain in the left lateral foot. Has recently started Amitriptyline. Review in 2 months. [facility] 09/10/2016- Increased Amitriptyline to 25mg bid. cont depakote for migraine. F/u in 2-3 mo. Vitamin D deficiency 01/05/2014 Hypothyroidism 05/17/2013 Type 2 diabetes mellitus Overview (07/28/2023): with diabetic nephropathy, hyperglycemia and long-term current use of insulin Serum creatinine outside reference range Benign hypertension Resolved Problems Problem Noted Date Diagnosed Date Resolved Date Recurrent major depressive episodes, moderate 09/22/19 20 08/21/2020 Urinary incontinence 11/25/2018 021 Atrophy of vagina 09/09/2018 08/21/2020 Abdominal pain 08/20/2018 08/21/2020 Overview (08/21/2020): abdominal CT done 08/12/2018-no evidence of urinary tract calculus or obstruction. No acute abdominal process identified [facility] 03/05/16- Colonic diverticulosis with acute diverticulitis by CT analysis when compared 10/14/2015 >> She went to [facility] ER on 06/11/16 with 3 days [...] to f/u as outpt. USG abd at [facility] on 04/24/16- No finding to suggest a hernia or other abnormality to explain the patient's right lower quadrant pain and reporting lump History of herpes zoster 01/09/2017 Atopic dermatitis 05/22/2015 08/21/2020 Overview (08/21/2020): Seen at allergy clinic. Gastroesophageal reflux disease 05/17/2013 08/21/2020 Overview (08/21/2020): egd- 07/19/13- [facility]. EGD at [facility] on 10/01/15: Normal stomach, duodenum. Hiatal hernia in GE Jn. GI rec cont Omeprazole for symptom control Osteoarthritis 05/17/2013 08/21/2020 Migraine with aura 05/17/2013 Overview (08/21/2020): Following Neuro at [facility] Mri of brain- non specific changes partially [...] massage, TENs, biofeedback 07/16/17-Continue multiple modality approach Encounters Date Type Department Care Team Description 10/27/2024 4:00 PM EDT Office Visit [facility] [address] [place] [address] Debbie Chester MD Type 2 diabetes mellitus with complication, not otherwise specified (HCC) (Primary Dx); Stage 3a chronic kidney disease (HCC) 10/21/2024 Documentation Only [facility] [address] [place] [address] Raquel Machado from Last 3 Months Immunizations Immunization Administration Dates Next Due Influenza TIV (IM) 12/20/2015,12/21/2013 Influenza, Quadrivalent, Pre servative Free 05/03/2020,11/25/2018,12/03/2017,11/05 PPD Test 12/20/2014 Pfizer SARS-COV-2 02/28/2021,08/28/2020,08/07/19 21 Pneumococcal Conjugate 13-Valent 11/25/2018 Pneumococcal Polysaccharide 03/23/2015 Shingrix 10/30/2020 Tdap 03/23/2015 Zoster 05/03/2020 Family History Medical History Relation Comments Coronary artery disease Brother Diabetes type II Brother Diabetes Mother Relation Status Comments Brother Mother Social History Tobacco Use Types Packs/Day Years Used Date Smoking Tobacco: Never Smokeless Tobacco: Never Comments Unknown Sex and Gender Information Value Date Recorded Sex Assigned at Not on file Legal Sex Female 10:56 AM EDT Gender Identity Not on file Sexual Orientation Not on file Last Filed Vital Signs Vital Sign Reading Time Taken Comments Blood Pressure 110/73 10/27/2024 4:08 PM EDT Pulse 97 05/28/2021 4:43 PM EDT Temperature - - Respiratory Rate - - Oxygen Saturation - - Inhaled Oxygen Concentration - - Weight - - Height - - Body Mass Index - - Plan of Treatment Upcoming Encounters Date Type Department Care Team (Late st Contact Info) Description 04/27/2025 3:00 PM EST Office Visit [facility] [address] [place] [phone] Debbie Chester MD [address] [place] [address] [place] [address] Health Maintenance Due Date Last Done Comments Breast Cancer Screening 1965 Colorectal Cancer Screening: Annual FOBT 01/09/2012 Colorectal Cancer Screening: Colonoscopy 01/09/2012 Colorectal Cancer Screening: Sigmoidoscopy 01/09/2012 Pneumococcal Vaccine: 50+ Ye ars (3 of 3 - PCV20 or PCV21) 03/23/2020 11/25/2018, 03/23/2015 Diabetes: Ophthalmology Exam 07/13/2020 Diabetes: Pedal Pulse Checked 07/13/2020 Diabetes: Sensory Foot Exam 07/13/2020 Diabetes: Visual Foot Exam 07/13/2020 Hepatitis B Vaccine (1 of 3 - Risk 3-dose series) 2023 Influenza Vaccine (#1) 2024 4, 11/05/2022, 04/04/2022, Additional history exists Diabetes: Hemoglobin A1C 12/29/2024 08 025, 04/29/2024, 12/04/2023, Additional history exists Pneumococcal Vaccine: Peds ( 0 to 5 Years) and At-Risk Patients (6 to 49 Years) Discontinued 11/25/2018, 03/23/2015 Procedures Procedure Name Priority Date/Time Associated Diagnosis Comments VITAMIN D 25 HYDROXY Routine 11/07/2024 11:04 AM EDT Type 2 diabetes mellitus with complication, not otherwise specified (HCC) Stage 3a chronic kidney disease (HCC) URINE ALBUMIN / CREATININE RATIO Routine 11/07/2024 11:04 AM EDT Type 2 diabetes mellitus with complication, not otherwise specified (HCC) Stage 3a chronic kidney disease (HCC) URINALYSIS WITH MICROSCOPIC Routine 11/07/2024 11:04 AM EDT Type 2 diabetes mellitus with complication, not otherwise specified (HCC) Stage 3a chronic kidney disease (HCC) RENAL FUNCTION PANEL Routine 11/07/2024 11:04 AM EDT Type 2 diabetes mellitus with complication, not otherwise specified (HCC) Stage 3a chronic kidney disease (HCC) CBC Routine 11/07/2024 11:04 AM EDT Type 2 diabetes mellitus with complication, not otherwise specified (HCC) Stage 3a chronic kidney disease (HCC) MICROSCOPIC EXAMINATION - DO NOT USE Routine 11/07/2024 11:04 AM EDT HEMOGLOBIN A1C Routine 04/29/2024 10:37 AM EST Type 2 diabetes mellitus with complication, not otherwise specified (HCC) Adverse effect of other nonsteroidal anti-inflammatory drugs (NSAID), sequela Stage 3a chronic kidney disease (HCC) from Last 3 Months or Most Recently Relevant to Health Maintenance Results * Microscopic Examination (11/07/2024 11:04 AM EDT) WBC, Urine None seen 0 - 5 /hpf [facility] RBC, Urine None seen 0 - 2 /hpf [facility] Squamous Epithelial, Urine 0-10 0 - 10 /hpf [facility] Casts None seen None seen /lpf [facility] Bacteria, Urine None seen None seen/Few [facility] 11/07/2024 11:0 4 AM EDT 11/07/2024 us Debbie Chester MD LAB MICROBIOLOGY - GENERAL ORD ERABLES Final Result [facility] [address] [place] [address] * (ABNORMAL) Urine Albumin / Creatinine Ratio (11/07/2024 11:04 AM EDT) Creatinine, Ur 60.2 Not Estab. mg/dL [facility] Albumin, Urine 43.2 Not Estab. ug/mL [facility] Albumin/Creatin ine Ratio 72(H) 0 - 29 mg/g creat [facility] Comment: Normal: 0 - 29 Moderately increased: 30 - 300 Severely increased: >300 Urine Urine specimen obtained by clean catch procedure / Unknown 11/07/2024 11:04 AM EDT 11/07/2024 us Debbie Chester MD LAB URINE ORDERABLES Final Res ult [facility] [address] [place] [address] * Vitamin D 25 hydroxy (11/07/2024 11:04 AM EDT) Pathologist [facility] Vitamin D, 25-OH, Total 38.7 30.0 - 100.0 ng/mL [facility] Comment: Vitamin D deficiency has been defined by the [place] of Medicine and an Endocrine Society practice guideline as a level of serum 25-OH vitamin D less than 20 ng/mL (1,2). The Endocrine Society went on to further define vitamin D insufficiency as a level between 21 and 29 ng/mL (2). 1. IOM ([place] of Medicine). 2010. Dietary reference intakes for calcium and D. [place]: The National Academies Press. 2. Kim MF, An RUSSO, Kathie DENT, et al. Evaluation, treatment, and prevention of vitamin D deficiency: an Endocrine Society clinical practice guideline. JCEM. 2010; 96(7):1911-30. Blood Venous blood / Unknown 11/07/2024 11:04 AM EDT 11/07/2024 us Debbie Chester MD LAB BLOOD ORDERABLES Final Res ult [facility] [address] [place] [address] * (ABNORMAL) Urinalysis with microscopic (11/07/2024 11:04 AM EDT) Specific [place], Urine 1.023 1.005 - 1.030 [facility] pH Urine 5.5 5.0 - 7.5 [facility] Color, Urine Yellow Yellow [facility] [phone] Appearance Urine Clear Clear [facility] [place] [facility] WBC Esterase Urine Negative Negative [facility] Protein, Ur Trace Negative/Tra ce [facility] [phone] Glucose, Ur 3+(A) Negative [facility] [phone] Ketones, Urine Negative Negative [facility] [facility] Blood Urine Negative Negative [facility] Bilirubin Urine Negative Negative [facility] Urobilinogen Urine 0.2 0.2 - 1.0 mg/dL [facility] Nitrite, Urine Negative Negative [facility] Microscopic Examination Comment [facility] Comment:Microscopic follows if indicated. Other Microsc. Observations See below: [facility] Comment:Microscopic was sukhjinder cated and was performed. Urine Urine specimen obtained by clean catch procedure / Unknown 11/07/2024 11:04 AM EDT 11/07/2024 us Debbie Chester MD LAB URINE ORDERABLES Final Res ult [facility] [address] [place] [address] * (ABNORMAL) CBC (11/07/2024 11:04 AM EDT) Pathologist [facility] WBC 9.7 3.4 - 10.8 x10E3/uL [facility] RBC 4.66 3.77 - 5.28 x10E6/uL [facility] Hemoglobin 12.4 11.1 - 15.9 g/dL [facility] Hematocrit 40.6 34.0 - 46.6 % [facility] MCV 87 79 - 97 fL [facility] MCH 26.6 26.6 - 33.0 pg [facility] MCHC 30.5(L) 31.5 - 35.7 g/dL [facility] RDW 13.3 11.7 - 15.4 % [facility] Platelets 195 150 - 450 x10E3/uL [facility] Blood Venous blood / Unknown 11/07/2024 11:04 AM EDT 11/07/2024 us Debbie Chester MD LAB BLOOD ORDERABLES Final [facility] [address] [place] [address] * (ABNORMAL) Renal function panel (11/07/2024 11:04 AM EDT) Glucose 195(H) 70 - 99 mg/dL [facility] BUN 26 8 - 27 mg/dL [facility] Creatinine 1.18(H) 0.57 - 1.00 mg/dL [facility] eGFR CKD-EPI CR 2020 53(L) >59 mL/min/1.7 3 [facility] BUN/Creatinine Ratio 22 12 - 28 [facility] Sodium 139 134 - 144 mmol/L [facility] Potassium 4.5 3.5 - 5.2 mmol/L [facility] Chloride 101 96 - 106 mmol/L [facility] Bicarbonate (CO2) 20 20 - 29 mmol/L [facility] Calcium 9.9 8.7 - 10.3 mg/dL [facility] Albumin 4.5 3.9 - 4.9 g/dL [facility] Phosphorus 4.0 3.0 - 4.3 mg/dL [facility] Blood Venous blood / Unknown 11/07/2024 11:04 AM EDT 11/07/2024 us Debbie Chester MD LAB BLOOD ORDERABLES Final Res ult [facility] [address] [place] [address] * (ABNORMAL) Hemoglobin A1c (04/29/2024 10:37 AM EST) Hemoglobin A1C 8.1(H) 4.8 - 5.6 % [facility] Comment: Prediabetes: 5.7 - 6.4 Diabetes: >6.4 Glycemic control for adults with diabetes: <7.0 Blood specimen (specimen) Venous blood / Unknown 04/29/2024 10:37 AM EST 04/29/2024 us Debbie Chester MD LAB BLOOD ORDERABLES Final Res ult [facility] [address] [place] [address] from Last 3 Months or Most Recently Relevant to Health Maintenance Insurance [place] Care Teams Public Policy Analyst Relationship Specialty Start Date End Date Nancie Solis NP [address] [place] [address] [place] [phone] PCP - General Nurse Practitioner 01/28/24
--- OUTSIDE RECORDS SUMMARY | 2024-12-20 13:02 | XMS_ITS | Encounter Summary ---
Author Organization [facility] Address [address] [place] [address] Care Team Providers Care Station Air Traffic Control Specialist Name Role Phone Aixa Goel Primary Care Provider [phone] Encounter Details Date Type Department Care Team (Late Contact Info) Description 05/16/2015 Interim Notes [address] [place] [phone] Use, Do Not, [facility] [address] Social History Tobacco Use Types Packs/Day Years Used Date Smoking Tobacco: Never Smokeless Tobacco: Never Alcohol Use Standard Drinks/Week Comments No 0 (1 standard drink = 0.6 oz pur e alcohol) Comments No Sex and Gender Information Value [...] Description 01/13/2025 9:20 AM EST Office Visit [id number] [place] [phone] Aixa Goel FNP [address] [place] [address] 01/30/2025 10:00 AM EST / Visits [facility] [address] [place] [address] Katelin Mcclain, [facility] [employer] [address] [place] [address] 03/28/2025 10:20 AM EST Office Visit [facility] [address] [place] [phone] Tiana Son Y [address] [place] [address] documented as of this encounter Visit Diagnoses Not on filedocumented in this encounter Additional Health Concerns Infection Onset Date Last Indicated Resolved Time COVID-19 Comment:Added automatically based on patient reported travel screening. 03/09/2020 03/09/2020 04/18/2020 11:31 AM PST Assessment Noted Time PHQ-9 Depression Total Score: 21 016 3:00 PM PST documented as of this encounter Care Teams Station Air Traffic Control Specialist Relationship Specialty Start Date End Date Aixa Goel FNP [address] [place] [phone] PCP - General Internal Medicine 03/20/21 documented as of this encounter
--- OUTSIDE RECORDS SUMMARY | 2024-12-20 13:02 | XMS_ITS | Encounter Summary ---
Author Organization [facility] Address [address] [place] [address] Phone Care Team Providers Care Surgical Resident Name Role Phone Nancie Solis AUTOMATION TECHNOLOGIST Primary Care Provider Unavailabl e Encounter Details Date Type Department Care Team (Late Contact Info) Description 10/21/2024 Documentation Only [facility] [address] [place] [phone] Raquel Machado [address] [place] [address] Social History Tobacco Use Types [...] Visit [facility] [address] [place] [phone] Debbie Chester MD [address] [place] [address] [place] [phone] documented as of this encounter Visit Diagnoses Not on filedocumented in this encounter Care Teams Surgical Resident Relationship Specialty Start Date End Date Nancie Solis NP [address] [facility] [address] [place] [phone] PCP - General Nurse Practitioner 01/28/24 documented as of this encounter
== END 2024-12-20 11:38 | disposition home or self-care (01) ==
LOC: HO.HOS 10:28
PROVIDERS: PCP Internal Medicine; Visit Provider Physician Assistant
DX: M75.102 Unspecified rotator cuff tear or rupture of left shoulder, not specified as traumatic (principal); M54.12 Radiculopathy, cervical region
CPT/HCPCS: 20610; 99203

== ENCOUNTER → 2024-12-20 10:30 | Outpatient (BNV) | payer OTHER, SELFPAY | PROVIDERS: Visit Provider Radiology Diagnostic Radiology | DX: M25.512 Pain in left shoulder (principal) | CPT/HCPCS: 73030 ==